=== PATIENT | male | born 1950 | race Caucasian/White ===

== ENCOUNTER 2020-11-07 07:41 | Outpatient (REF) | payer MEDICARE, SELFPAY ==
[2020-11-07 11:50] LABS: Alanine Aminotransferase 53 U/L (0-40); Albumin Level 4.3 g/dL (3.5-5.0); Alkaline Phosphatase 66 U/L (39-117); Anion Gap 16 (12-20); Aspartate Amino Transferase 28 U/L (5-37); Bilirubin Total 0.5 mg/dL (0.0-1.0); Blood Urea Nitrogen 18 mg/dL (9-16); Calcium 8.8 mg/dL (8.4-10.2); Carbon Dioxide 28 mmol/L (22-29); Chloride 98 mmol/L (96-108); Cholesterol 154 mg/dL; Estimated Glomerular Filt Rate 56; Glucose Fasting 178 mg/dL (60-99); HDL Cholesterol 44 mg/dL; LDL Cholesterol Calculated 80 mg/dl; Potassium 4.1 mmol/l (3.3-5.1); Sodium 138 mmol/L (135-145); Total Protein 6.9 g/dL (6.5-8.0); Triglycerides 150 mg/dL
[2020-11-07 11:54] LABS: Creatinine Urine 114.16 mg/dL; Microalbum/Creatinine Ratio Ur 11.3 ug/mg cr
[2020-11-07 12:50] LABS: Estimated Average Glucose 186 mg/dL; Hemoglobin A1c % 8.1 %
== END 2020-11-07 07:42 | disposition home or self-care (01) ==
LOC: HO.HMGCLDS 07:41
PROVIDERS: PCP Internal Medicine; Visit Provider Internal Medicine
DX: I10 Essential (primary) hypertension (principal); E11.9 Type 2 diabetes mellitus without complications; E78.9 Disorder of lipoprotein metabolism, unspecified; R80.9 Proteinuria, unspecified
CPT/HCPCS: 36415; 80053; 80061; 82043; 83036

== ENCOUNTER 2021-07-24 13:52 | Outpatient (REF) | payer MEDICARE, SELFPAY ==
[2021-07-24 17:00] LABS: MANUAL DIFF FLAG NO
[2021-07-24 17:08] LABS: Basophils Percent Auto 0.3 % (0-2); Eosinophils Absolute Auto 0.1 X10*3/uL (0.0-0.4); Eosinophils Percent Auto 0.9 % (0-4); Hematocrit 47.2 % (42-52); Hemoglobin 15.6 g/dl (14.0-18.0); Imm Gran Abs Auto 0.07 X10*3/uL (0.00-0.03); Imm Gran Pct Auto 0.6 % (0.0-0.4); Lymphocytes Absolute Auto 1.6 X10*3/uL (1.2-4.9); Lymphocytes Percent Auto 13.4 % (20-40); Mean Corpuscular HGB Conc 33.1 g/dl (31.0-36.0); Mean Corpuscular Hemoglobin 29.9 pg (27.0-33.0); Mean Corpuscular Volume 90.6 fL (80-98); Mean Platelet Volume 9.7 fL (9.4-12.4); Monocytes Absolute Auto 1.1 X10*3/uL (0.1-1.2); Monocytes Percent Auto 9.1 % (2-11); Neutrophils Absolute Auto 8.8 X10*3/uL (2.0-8.3); Neutrophils Percent Auto 75.7 % (45-73); Platelet Count 256 X10*3/uL (160-400); Red Blood Count 5.21 X10*6/uL (4.60-5.80); Red Cell Distribution Width 13.1 % (11.0-16.0); White Blood Count 11.6 X10*3/uL (4.8-10.8)
[2021-07-24 17:13] LABS: Estimated Average Glucose 174 mg/dL; Hemoglobin A1c % 7.7 %
[2021-07-24 17:31] LABS: Alanine Aminotransferase 52 U/L (0-40); Albumin Level 4.5 g/dL (3.5-5.0); Alkaline Phosphatase 74 U/L (39-117); Anion Gap 16 (12-20); Aspartate Amino Transferase 31 U/L (5-37); Bilirubin Direct 0.2 mg/dL (0.0-0.5); Bilirubin Total 0.3 mg/dL (0.0-1.0); Blood Urea Nitrogen 15 mg/dL (9-16); Calcium 9.9 mg/dL (8.4-10.2); Carbon Dioxide 28 mmol/L (22-29); Chloride 102 mmol/L (96-108); Estimated Glomerular Filt Rate 59; Glucose Random 186 mg/dL (60-115); Potassium 4.5 mmol/L (3.3-5.1); Sodium 141 mmol/L (135-145); Total Protein 7.1 g/dL (6.5-8.0)
[2021-07-24 17:47] LABS: Creatinine Urine 81.07 mg/dL; Microalbum/Creatinine Ratio Ur 43.1 ug/mg cr
[2021-07-26 06:56] LABS: LDL Cholesterol Direct 98 mg/dL (<100)
== END 2021-07-24 13:53 | disposition home or self-care (01) ==
LOC: HO.HMGCLDS 13:52
PROVIDERS: PCP Internal Medicine; Visit Provider Internal Medicine
DX: E13.9 Other specified diabetes mellitus without complications (principal); E78.9 Disorder of lipoprotein metabolism, unspecified; I10 Essential (primary) hypertension; Z91.09 Other allergy status, other than to drugs and biological substances
CPT/HCPCS: 36415; 80053; 82043; 82248; 83036; 83721; 85025

== ENCOUNTER 2021-10-17 07:33 | Outpatient (REF) | payer MEDICARE, SELFPAY ==
[2021-10-17 11:57] LABS: Estimated Average Glucose 177 mg/dL; Hemoglobin A1c % 7.8 %
[2021-10-17 12:01] LABS: Creatinine Urine 139.11 mg/dL; Microalbum/Creatinine Ratio Ur 33.7 ug/mg cr
[2021-10-17 12:19] LABS: Anion Gap 13 (12-20); Blood Urea Nitrogen 17 mg/dL (9-16); Calcium 9.1 mg/dL (8.4-10.2); Carbon Dioxide 28 mmol/L (22-29); Chloride 106 mmol/L (96-108); Estimated Glomerular Filt Rate 60; Glucose Random 189 mg/dL (60-115); Sodium 142 mmol/L (135-145)
== END 2021-10-17 07:34 | disposition home or self-care (01) ==
LOC: HO.HMGCLDS 07:33
PROVIDERS: PCP Internal Medicine; Visit Provider Internal Medicine
DX: E13.9 Other specified diabetes mellitus without complications (principal); E78.9 Disorder of lipoprotein metabolism, unspecified; I10 Essential (primary) hypertension; Z91.09 Other allergy status, other than to drugs and biological substances
CPT/HCPCS: 36415; 80048; 82043; 83036

== ENCOUNTER 2022-02-15 07:54 | Outpatient (REF) | payer MEDICARE, SELFPAY ==
[2022-02-15 11:30] LABS: Estimated Average Glucose 171 mg/dL; Hemoglobin A1c % 7.6 %
[2022-02-15 11:41] LABS: Alanine Aminotransferase 46 U/L (0-40); Albumin Level 4.2 g/dL (3.5-5.0); Alkaline Phosphatase 64 U/L (39-117); Anion Gap 14 (12-20); Aspartate Amino Transferase 27 U/L (5-37); Bilirubin Total 0.7 mg/dL (0.0-1.0); Blood Urea Nitrogen 18 mg/dL (9-16); Calcium 9.2 mg/dL (8.4-10.2); Carbon Dioxide 27 mmol/L (22-29); Chloride 104 mmol/L (96-108); Cholesterol 156 mg/dL; Estimated Glomerular Filt Rate 53; Glucose Fasting 178 mg/dL (60-99); HDL Cholesterol 44 mg/dL; LDL Cholesterol Calculated 89 mg/dl; Potassium 4.9 mmol/L (3.3-5.1); Sodium 140 mmol/L (135-145); Triglycerides 118 mg/dL
[2022-02-15 12:15] LABS: Creatinine Urine 177.77 mg/dL; Microalbum/Creatinine Ratio Ur 5.6 ug/mg cr
== END 2022-02-15 07:55 | disposition home or self-care (01) ==
LOC: HO.HMGCLDS 07:54
PROVIDERS: PCP Internal Medicine; Visit Provider Internal Medicine
DX: E13.9 Other specified diabetes mellitus without complications (principal); E66.09 Other obesity due to excess calories; E78.9 Disorder of lipoprotein metabolism, unspecified; I10 Essential (primary) hypertension
CPT/HCPCS: 36415; 80053; 80061; 82043; 83036

== ENCOUNTER → 2022-06-21 09:49 | Outpatient (BNVA) | payer MEDICARE, SELFPAY | PROVIDERS: PCP Internal Medicine; Visit Provider Nurse Practitioner | DX: Z12.11 Encounter for screening for malignant neoplasm of colon (principal); K64.9 Unspecified hemorrhoids; K59.00 Constipation, unspecified; E11.9 Type 2 diabetes mellitus without complications; I10 Essential (primary) hypertension; E78.00 Pure hypercholesterolemia, unspecified; E66.9 Obesity, unspecified; Z68.32 Body mass index [BMI] 32.0-32.9, adult; Z87.19 Personal history of other diseases of the digestive system | CPT/HCPCS: 99202 ==

== ENCOUNTER 2022-09-12 07:52 | Outpatient (REF) | payer MEDICARE, SELFPAY ==
[2022-09-12 11:32] LABS: Estimated Average Glucose 177 mg/dL; Hemoglobin A1c % 7.8 %
[2022-09-12 11:48] LABS: Alanine Aminotransferase 58 U/L (0-40); Albumin Level 4.4 g/dL (3.5-5.0); Alkaline Phosphatase 62 U/L (39-117); Anion Gap 17 (12-20); Aspartate Amino Transferase 37 U/L (5-37); Bilirubin Total 0.7 mg/dL (0.0-1.0); Blood Urea Nitrogen 18 mg/dL (9-16); Calcium 9.7 mg/dL (8.4-10.2); Carbon Dioxide 28 mmol/L (22-29); Chloride 102 mmol/L (96-108); Estimated Glomerular Filt Rate 54; Glucose Random 192 mg/dL (60-115); Potassium 4.8 mmol/L (3.3-5.1); Sodium 142 mmol/L (135-145); Total Protein 7.1 g/dL (6.5-8.0)
== END 2022-09-12 07:53 | disposition home or self-care (01) ==
LOC: HO.HMGCLDS 07:52
PROVIDERS: PCP Internal Medicine; Visit Provider Internal Medicine
DX: E66.09 Other obesity due to excess calories (principal); E78.9 Disorder of lipoprotein metabolism, unspecified; I10 Essential (primary) hypertension; E13.9 Other specified diabetes mellitus without complications
CPT/HCPCS: 36415; 80053; 83036

== ENCOUNTER 2022-10-29 06:22 | Day surgery (SDC) | payer MEDICARE, SELFPAY ==
[2022-10-22 15:37] VITALS: BMI 32.5
--- NOTE | 2022-10-25 12:28 | HO.ANESPROP2 ---
Documented by User: Afua Read NP 10/25/22 12:29 HPI - Anesthesia Eval Consult details Narrative: 72yo M for Colonoscopy PMFSH Active Problems Active Problems: All Active Problems (Updated 10/22/22 @ 15:37 by Bonnie Cosby RN) Hypertension, essential (Acute) Lipid disorder (Acute) Diabetes 1.5, managed as type 2 (Acute) Environmental allergies (Acute) Obesity due to excess calories (Acute) Vertigo (Acute) Medicare annual wellness visit, subsequent (Acute) Colon cancer screening (Acute) Preop examination (Acute) Past Medical History Medical History Diabetes Elevated cholesterol HTN (hypertension) Nephropathy Family History Family History Father Hyperlipidemia Hx of CABG Mother HTN (hypertension) Hyperlipidemia Sister No problems noted. Son No problems noted. Son No problems noted. Daughter No problems noted. Surgical History Surgical History History of colonoscopy History of umbilical hernia repair Hx of hand surgery Social History Social History Housing: House Are you a primary rehab care assistant to a significant other at home: No Do you presently have visiting nurse or other home services: No Alcohol intake: never Patient Tobacco Use Status: Never used Tobacco e-Cigarette/Vaping Use: Never Used Second Hand Smoke Exposure: Yes Use of substances other than those prescribed or required for medical reasons: No Have you been hit, kicked, punched, or otherwise hurt by someone within the past year? If so, by whom?: No Are you DNR?: No Advance Directives: No Advance Directives Information Provided: Yes (will bring copy of HCP DOS) Advance Directives on File: No Recently lost weight without trying: No Eating poorly because of decreased appetite: No Nutrition Risks: No Nutritional Risk Poor oral hygiene: No Current occupational status: retired Cognitive needs: No Hearing needs: Yes Vision needs: Yes Meds Allergies Allergy/AdvReac Type Severity Reaction Status Date / Time No Known Allergies Allergy Verified 09/24/22 13:55 Home Medications Medication Instructions Recorded Confirmed Last Taken Type cholecalciferol (vitamin D3) 25 25 mcg PO DAILY 11/14/20 10/22/22 Unknown History mcg (1,000 unit) capsule Exam Exam Date and Time: October 25, 2022 1228 Height,Weight and Vital Signs: Height 5 ft 10 in Weight 102.965 kg Pertinent Lab Results Pertinent Lab Results: Laboratory Tests 07/24/21 09/12/22 13:58 08:00 WBC 11.6 H Hgb 15.6 Hct 47.2 Plt Count 256 Sodium 142 Potassium 4.8 Chloride 102 Carbon Dioxide 28 BUN 18 H Creatinine 1.30 Assessment and Plan Assessment Anesthesia Assessment: Chart Reviewed Documented by User: Johnny Sampson MD 10/29/22 07:32 [facility] Past Medical History Medical History Diabetes Elevated cholesterol HTN (hypertension) Nephropathy Family History Family History Father Hyperlipidemia Hx of CABG Mother HTN (hypertension) Hyperlipidemia Sister No problems noted. Son No problems noted. Son No problems noted. Daughter No problems noted. Family history of problems with anesthesia: No Surgical History Surgical History History of colonoscopy History of umbilical hernia repair Hx of hand surgery History of Problems with Anesthesia: No Social History Social History Housing: House Are you a primary rehab care assistant to a significant other at home: No Do you presently have visiting nurse or other home services: No Alcohol intake: never Patient Tobacco Use Status: Never used Tobacco e-Cigarette/Vaping Use: Never Used Second Hand Smoke Exposure: Yes Use of substances other than those prescribed or required for medical reasons: No Have you been hit, kicked, punched, or otherwise hurt by someone within the past year? If so, by whom?: No Are you DNR?: No Advance Directives: No Advance Directives Information Provided: Yes (will bring copy of HCP DOS) Advance Directives on File: No Recently lost weight without trying: No Eating poorly because of decreased appetite: No Nutrition Risks: No Nutritional Risk Poor oral hygiene: No Current occupational status: retired Cognitive needs: No Hearing needs: Yes Vision needs: Yes Meds Allergies Allergy/AdvReac Type Severity Reaction Status Date / Time No Known Allergies Allergy Verified 09/24/22 13:55 Home Medications Medication Instructions Recorded Confirmed Last Taken Type cholecalciferol (vitamin D3) 25 25 mcg PO DAILY 11/14/20 10/22/22 Unknown History mcg (1,000 unit) capsule Exam Airway Mallampati Class: III TM Dist: >3cm Neck ROM: Full Heart: <del>rrr</del> Lungs: clear Assessment and Plan Final Anesthetic Review Family History of Problems with Anesthesia: No History of Problems with Anesthesia: No ASA Class: II Final Preanesthetic Review: No Changes in Pt Med Stat, Meds/Allgs Chart Reviewed, Consent Obtained/Reviewed and Anes Risks/Benef Reviewed Patient Risk: Intermediate Procedure Risk: Low Anesthetic Plan Anesthetic Plan: MAC: Disposition: Standard PACU
[2022-10-29 06:43] VITALS: BP 148/80; PULSE 106; RESP 16; TEMP 35.8; O2SAT 97
[2022-10-29] MEDS: Lactated Ringers 1,000 ML 100 ML IVCONT (06:53)
[2022-10-29 06:57] LABS: Glucose, Whole Blood 134 mg/dL (60-115)
--- NOTE | 2022-10-29 07:30 | MHC.SHP ---
Pre-Procedural Eval Section A Date of Service: 10/29/22 Section B Chief Complaint: screening Details of Present Illness: 71 y.o M here for screening colonoscopy.? Previous colo was in 2008 and reportedly normal. PMHX Diabetes Vertigo Obesity High cholesterol Hypertension Allergic rhinitis * SURGICAL HISTORY Colonoscopy-2008, [place] Umbilical hernia repair-[facility] Present Medications: see Short Stay Collaborative assessment Medical History: Significant History (As above ) History of Previous Operations: Relevant previous surgery/procedure and date(s) (As above ) Allergies: Allergies Allergy/AdvReac Type Severity Reaction Status Date / Time No Known Allergies Allergy Verified 09/24/22 13:55 Review of Systems Review of Systems Comment: 10 point ROS negative except as noted above Exam Exam Comment: Gen appear: No acute distress, well nourished HEENT: no icterus Chest: No overt resp distress Abd: soft, nontender, nondistended Psych: Stable affect, answering questions appropriately Neuro: A/Ox3 noted to move all extremities spontaneously Ext: no peripheral edema Plan Diagnosis/Plan: Unchanged I have reviewed the history and physical and performed a pertinent physical examination on my patient. No changes have occurred unless specified. Time Spent With Patient Time: Total time managing care of this patient today ____ minutes.
--- NOTE | 2022-10-29 07:37 | P.OP_ITS ---
Operative Note Operative Note Date of Service: 10/29/22 Narrative: Procedure: Colonoscopy Indication: Screening Endoscopist: Abbie Trevizo MD Anesthesia Provider: Dr Johnny Sampson Anesthesia type: MAC Instrument: Olympus PCF-H190L and CF-190L Consent: Indication, risks vs benefits, and alternatives were discussed with the patient who gave written informed consent to proceed. EKG, pulse, pulse oximetry and blood pressure were monitored throughout the procedure. Please see anesthesia flowsheet. Procedure: The patient was brought to the procedure room and placed in the left lateral decubitus position. IV medications were administered by the anesthesia provider in attendance. A digital rectal exam was performed which was abnormal due to finding of hemorrhoids. The colonoscope was then inserted through the anus and advanced through the colon to the cecum at 85 cm Ileocecal valve and appendiceal orifice were identified. Mucosa was carefully examined under high definition white light as the instrument was slowly withdrawn in a retrograde panoramic fashion. Retroflexion was performed in rectum. The procedure was somewhat difficult and required change of scope to adult colonoscope to intubate the cecum. There were no immediate obvious complications. The quality of the prep was BBPS: 2+3+2 = adequate Withdrawal time 18 minutes. Limitations: No limitations. Findings: Mucosa: Normal to cecum. Protruding lesions: * 1 sessile polyp of size 2 mm in cecum. Biopsy forceps polypectomy was performed. The polyp was completely removed and retrieved. * 1 sessile polyp of size 4 mm in cecum. Cold snare polypectomy was performed. The polyp was completely removed and retrieved. * 1 sessile polyp of size 6 mm in transverse colon. Cold snare polypectomy was performed. The polyp was completely removed and retrieved. * 1 pedunculated polyp of size 8 mm in transverse colon. Hot snare polypectomy was performed. The polyp was completely removed and retrieved. * 1 sessile polyp of size 7 mm in sigmoid colon. Cold snare polypectomy was performed. The polyp was completely removed and retrieved. * Large internal hemorrhoids with stigmata of recent bleeding. Excavated lesions: * Small and medium mouthed diverticula in whole colon left > right. Impression: 1. Normal colon mucosa 2. Total of 5 polyps removed from cecum, transverse, and sigmoid colon. 3. Diverticulosis 4. Large internal hemorrhoids Recommendations: - Follow path results. - Repeat colonoscopy in 3 years if polyps are adenomas or sessile serrated. - Increase fiber intake, sitz bath
[2022-10-29 08:50] VITALS: BP 90/61; PULSE 86; RESP 18; TEMP 36.9; O2SAT 97
[2022-10-29 09:05] VITALS: BP 110/71; PULSE 81; RESP 18; TEMP 36.9; O2SAT 99
== END 2022-10-29 09:23 ==
LOC: HO.SSS 06:23
PROVIDERS: PCP Internal Medicine; Visit Provider Internal Medicine
PROC: 0DJD8ZZ Inspection of Lower Intestinal Tract, Via Natural or Artificial Opening Endoscopic (ICD-10-PCS; CPT 45378; principal; 2022-10-29 07:30)
DX: Z12.11 Encounter for screening for malignant neoplasm of colon (principal); D12.0 Benign neoplasm of cecum; D12.3 Benign neoplasm of transverse colon; K63.5 Polyp of colon; K57.30 Diverticulosis of large intestine without perforation or abscess without bleeding; K64.8 Other hemorrhoids; I10 Essential (primary) hypertension; E78.00 Pure hypercholesterolemia, unspecified; E11.9 Type 2 diabetes mellitus without complications; R42 Dizziness and giddiness; Z79.84 Long term (current) use of oral hypoglycemic drugs; Z79.899 Other long term (current) drug therapy
CPT/HCPCS: 45385; 45380; 82947; 88305

== ENCOUNTER → 2022-11-11 11:23 | Outpatient (BNVA) | payer MEDICARE, SELFPAY | PROVIDERS: PCP Internal Medicine; Visit Provider Internal Medicine | DX: K57.30 Diverticulosis of large intestine without perforation or abscess without bleeding (principal); D12.0 Benign neoplasm of cecum; D12.3 Benign neoplasm of transverse colon; K63.5 Polyp of colon; Z98.890 Other specified postprocedural states | CPT/HCPCS: 99212 ==

== ENCOUNTER 2023-01-17 07:26 | Outpatient (REF) | payer MEDICARE, SELFPAY ==
[2023-01-17 12:53] LABS: MANUAL DIFF FLAG NO
[2023-01-17 13:00] LABS: Basophils Absolute Auto 0.1 X10*3/uL (0.0-0.2); Basophils Percent Auto 0.5 % (0-2); Eosinophils Absolute Auto 0.3 X10*3/uL (0.0-0.4); Eosinophils Percent Auto 2.7 % (0-4); Hematocrit 49.5 % (42.0-52.0); Hemoglobin 16.3 g/dl (14.0-18.0); Imm Gran Abs Auto 0.07 X10*3/uL (0.00-0.03); Imm Gran Pct Auto 0.7 % (0.0-0.4); Lymphocytes Absolute Auto 2.7 X10*3/uL (1.2-4.9); Lymphocytes Percent Auto 25.8 % (20-40); Mean Corpuscular HGB Conc 32.9 g/dl (31.0-36.0); Mean Corpuscular Hemoglobin 29.6 pg (27.0-33.0); Mean Platelet Volume 9.3 fL (9.4-12.4); Monocytes Absolute Auto 1.1 X10*3/uL (0.1-1.2); Monocytes Percent Auto 10.4 % (2-11); Neutrophils Absolute Auto 6.2 x10*3/uL (2.0-8.3); Neutrophils Percent Auto 59.9 % (45-73); Platelet Count 259 X10*3/uL (160-400); Red Cell Distribution Width 13.2 % (11.0-16.0); White Blood Count 10.3 X10*3/uL (4.8-10.8)
[2023-01-17 13:31] LABS: Alanine Aminotransferase 50 U/L (0-40); Albumin Level 4.2 g/dL (3.5-5.0); Alkaline Phosphatase 65 U/L (39-117); Anion Gap 13 (12-20); Aspartate Amino Transferase 39 U/L (5-37); Bilirubin Total 0.7 mg/dL (0.0-1.0); Blood Urea Nitrogen 15 mg/dL (9-16); Calcium 9.2 mg/dL (8.4-10.2); Carbon Dioxide 30 mmol/L (22-29); Chloride 100 mmol/L (96-108); Cholesterol 169 mg/dL; Estimated Glomerular Filt Rate 52; Glucose Fasting 212 mg/dL (60-99); HDL Cholesterol 43 mg/dL; LDL Cholesterol Calculated 80 mg/dl; Potassium 4.6 mmol/L (3.3-5.1); Sodium 138 mmol/L (135-145); Total Protein 6.9 g/dL (6.5-8.0); Triglycerides 231 mg/dL
[2023-01-17 13:45] LABS: Estimated Average Glucose 200 mg/dL; Hemoglobin A1c % 8.6 %
== END 2023-01-17 07:27 | disposition home or self-care (01) ==
LOC: HO.HMGCLDS 07:26
PROVIDERS: Visit Provider Internal Medicine
DX: E66.09 Other obesity due to excess calories (principal); E78.9 Disorder of lipoprotein metabolism, unspecified; I10 Essential (primary) hypertension; Z91.09 Other allergy status, other than to drugs and biological substances; E13.9 Other specified diabetes mellitus without complications
CPT/HCPCS: 36415; 80053; 80061; 83036; 85025

== ENCOUNTER 2023-06-18 07:42 | Outpatient (REF) | payer MEDICARE, SELFPAY ==
[2023-06-18 11:19] LABS: MANUAL DIFF FLAG NO
[2023-06-18 11:29] LABS: Basophils Absolute Auto 0.1 X10*3/uL (0.0-0.2); Basophils Percent Auto 0.7 % (0-2); Eosinophils Absolute Auto 0.2 X10*3/uL (0.0-0.4); Eosinophils Percent Auto 2.6 % (0-4); Imm Gran Abs Auto 0.07 X10*3/uL (0.00-0.03); Imm Gran Pct Auto 0.8 % (0.0-0.4); Lymphocytes Absolute Auto 2.6 X10*3/uL (1.2-4.9); Lymphocytes Percent Auto 27.8 % (20-40); Mean Corpuscular HGB Conc 33.3 g/dl (31.0-36.0); Mean Corpuscular Hemoglobin 30.2 pg (27.0-33.0); Mean Corpuscular Volume 90.6 fL (80.0-98.0); Mean Platelet Volume 9.4 fL (9.4-12.4); Monocytes Percent Auto 10.5 % (2-11); Neutrophils Absolute Auto 5.3 x10*3/uL (2.0-8.3); Neutrophils Percent Auto 57.6 % (45-73); Platelet Count 251 X10*3/uL (160-400); Red Cell Distribution Width 13.3 % (11.0-16.0); White Blood Count 9.2 X10*3/uL (4.8-10.8)
[2023-06-18 11:37] LABS: Estimated Average Glucose 157 mg/dL; Hemoglobin A1c % 7.1 %
[2023-06-18 12:07] LABS: Alanine Aminotransferase 37 U/L (0-40); Albumin Level 4.2 g/dL (3.5-5.0); Alkaline Phosphatase 63 U/L (39-117); Anion Gap 12 (12-20); Aspartate Amino Transferase 25 U/L (5-37); Bilirubin Total 0.4 mg/dL (0.0-1.0); Blood Urea Nitrogen 16 mg/dL (9-16); Calcium 9.3 mg/dL (8.4-10.2); Carbon Dioxide 28 mmol/L (22-29); Chloride 104 mmol/L (96-108); Cholesterol 165 mg/dL; Estimated Glomerular Filt Rate 55; Glucose Fasting 178 mg/dL (60-99); HDL Cholesterol 50 mg/dL; LDL Cholesterol Calculated 81 mg/dl; Potassium 4.5 mmol/L (3.3-5.1); Sodium 139 mmol/L (135-145); Total Protein 7.3 g/dL (6.5-8.0); Triglycerides 171 mg/dL
== END 2023-06-18 07:43 | disposition home or self-care (01) ==
LOC: HO.HMGCLDS 07:42
PROVIDERS: PCP Internal Medicine; Visit Provider Internal Medicine
DX: E13.9 Other specified diabetes mellitus without complications (principal); E78.9 Disorder of lipoprotein metabolism, unspecified; G25.2 Other specified forms of tremor; I10 Essential (primary) hypertension; G52.2 Disorders of vagus nerve
CPT/HCPCS: 36415; 80053; 80061; 83036; 85025

== ENCOUNTER 2023-06-24 09:52 | Outpatient (AMB) | payer MEDICARE, SELFPAY ==
[2023-06-24 09:54] VITALS: BP 122/64; PULSE 96; O2SAT 99; BMI 32.3
--- NOTE | 2023-06-24 09:54 | A.OFFPC_ITS ---
Vital Signs 06/24/23 09:54 Height 5 ft 10 in Weight 225 lb 6 oz BMI 32.3 BP 122/64 Blood Pressure Location Rt brachial Position Sitting Pulse 96 Pulse Oximetry (%) 99 Oxygen Delivery Method Room Air Intake Visit Reasons: 4m follow up - A1C and Microalbumin needed Allergies No Known Allergies Allergy (Verified 06/24/23 09:54) Medication List - Last Reconciled 06/24/23 by Nazario Augustin MD blood sugar diagnostic (FreeStyle Lite Strips) Test blood sugar once a day blood-glucose meter (FreeStyle Lite Meter kit) Test blood sugar once a day cholecalciferol (vitamin D3) 25 mcg PO DAILY ezetimibe 10 mg PO DAILY glipizide-metformin 5-500 mg orally THREE TIMES A DAY; Take 2 tablets in the morning and 1 at night lancets (FreeStyle Lancets) Test blood sugar once a day lisinopril 5 mg PO DAILY OneTouch Delica Lancets (lancets) Test blood sugar once a day NS OneTouch Ultra Test (blood sugar diagnostic) Test blood sugar once a day NS OneTouch Ultra2 Meter (blood-glucose meter) As directed to test blood sugar NS simvastatin 40 mg PO QPM 90 days Tobacco use date assessed: 06/24/23 Fall risk assessment: No Falls in past year Last assessed Fall Risk: 06/24/23 Dental Screening Dental Screen Date: 06/24/23 Did you have a dental visit in the last 12 months?: Yes Did you have a dental problem in the last 6 months where you did not have access to dental care?: No Was dental information given to patient?: No HPI 4m follow up - A1C and Microalbumin needed HPI Details Patient is a 72-year-old gentleman came in today for his follow-up appointment We increased his glipizide metformin to 2 tablets in the morning and 1 at night, as his hemoglobin A1c has worsened to 8.6 He tells me that he continued to take 1 tablet in the morning and 1 at night he has modified his diet as well his hemoglobin A1c has gone down to 7.1. Blood pressure is stable patient is on lisinopril 5 mg Lipid disorder: Cholesterol is well controlled LDL is well controlled with simvastatin 40 mg patient is tolerating medication I have noticed that his heart rate is in 90s, patient also complained of feeling hot and excessive sweating. I have added thyroid test with his next set of labs. Continued to have coarse tremors he was referred to Neurology for evaluation BMI is elevated at 32.3 patient need to lose weight Chronic nephropathy, GFR is 55, which is stable we are monitoring it. Follow-up 3 months labs to be done before visit [facility] Medical History Diabetes Elevated cholesterol HTN (hypertension) Nephropathy Surgical History History of colonoscopy History of umbilical hernia repair Hx of hand surgery Family History Father Hyperlipidemia Hx of CABG Mother HTN (hypertension) Hyperlipidemia Sister No problems noted. Son No problems noted. Son No problems noted. Daughter No problems noted. Social History Housing: House Are you a primary memory care program director to a significant other at home: No Do you presently have visiting nurse or other home services: No Alcohol intake: never Patient Tobacco Use Status: Never used Tobacco e-Cigarette/Vaping Use: Never Used Second Hand Smoke Exposure: Yes service: Yes Current occupational status: retired Cognitive needs: No Hearing needs: Yes Vision needs: Yes Questionnaire PHQ-9 Over the last 2 weeks, how often have you been bothered by any of the following problems? 1. Little interest or pleasure in doing things: not at all 2. Feeling down, depressed, or hopeless: not at all 3. Trouble falling or staying asleep, or sleeping too much: not at all 4. Feeling tired or having little energy: not at all 5. Poor appetite or overeating: not at all 6. Feeling bad about yourself - or that you are a failure or have let yourself or your family down: not at all 7. Trouble concentrating on things, such as reading the newspaper or watching television: not at all 8. Moving or speaking so slowly that other people could have noticed. Or the opposite - being so fidgety or restless that you have been moving around a lot more than usual: not at all 9. Thoughts that you would be better off or of hurting yourself in some way: not at all Total score: 0 Depression Screening Interpretation: Negative [id number] - PHQ-9 Billing: Yes Source: Developed by Drs. Richard Rome, Brayden Arita and colleagues, with an educational jf from [employer]. Thrive Questionnaire Date Thrive assessed: 06/24/23 I am a: Patient What is your living situation today?: I have a steady place to live Within the past 12 months, did the food you bought not last and you didn't have the money to get more?: Never true Within the past 12 months, did you worry whether your food would run out before you got money to buy more?: Never true Do you have trouble paying for medicines?: No Do you have trouble getting transportation to medical appointments?: No Do you have trouble paying your heating and electricity bill?: No Do you have trouble taking care of your child, family member or friend?: No Do you have trouble with day-to-day activities such as bathing, preparing meals, shopping, managing finances, etc.?: No Are you currently unemployed and looking for a job?: No Are you interested in more education?: No AUDIT C Alcohol Use Questionnaire (AUDIT-C) 1. How often do you have a drink containing alcohol?: Never 3. How often do you have six or more drinks on one occasion?: Never Total Score: 0 Score Reviewed/Action Taken: Yes NGUYỄN-7 AMB Questionnaire NGUYỄN-7 Date NGUYỄN - 7 assessed: 06/24/23 Feeling nervous, anxious, or on edge: 0 = Not at all Not being able to stop or control worryin = Not at all Worrying too much about different things: 0 = Not at all Trouble relaxin = Not at all Being so restless that it is hard to sit still: 0 = Not at all Becoming easily annoyed or irritable: 0 = Not at all Feeling afraid as if something awful might happen: 0 = Not at all Total NGUYỄN-7 score (0-4 normal; 5-9 mild; 10-14 moderate; 15-21 severe): 0 Source: Developed by Drs. Richard Rome, Brayden Arita and colleagues, with an educational jf from [employer]. NGUYỄN-7 Assessment Billing NGUYỄN-7 Assessment Tool: NGUYỄN-7 Assessment 79435 Review of Systems Const Denies chills and Denies fever(s) ENT Denies epistaxis and Denies nasal discharge Card Denies chest pain Resp Denies chest congestion, Denies cough and Denies hemoptysis GI Denies diarrhea and Denies nausea Skin/Breast Denies rash Neuro Reports no additional complaints Psych Reports no additional complaints Endo Reports no additional complaints Physical exam (Primary Care) Vital Signs: Last Vital Signs Pulse 96 06/24/23 09:54 BP 122/64 06/24/23 09:54 Pulse Ox 99 06/24/23 09:54 Oxygen Delivery Method Room Air 06/24/23 09:54 BMI result Body Mass Index 32.3 Tobacco/Smoking Status: Tobacco use Status Tobacco use date assessed 06/24/23 06/24/23 09:56 Patient Tobacco Use Status Never used Tobacco 06/24/23 09:56 e-Cigarette/Vaping Use Never Used 06/24/23 09:56 PHQ-9: PHQ-9 Score PHQ-9: Total score 0 06/24/23 10:27 Depression Screening Interpretation: Negative Thrive Assessment: Date of Thrive Assessment Date Thrive assessed 06/24/23 06/24/23 10:27 Const General: cooperative, comfortable and no acute distress Orientation/consciousness: patient oriented x3 HENMT Head: Yes normocephalic Eyes General: appearance normal, both eyes and all related structures Neck Neck: Yes supple Resp Effort & Inspection: normal respiratory effort, no cough and no stridor Cardio Rhythm: regular rhythm Heart sounds: S1 normal heart sound present and S2 normal heart sound present Skin General skin exam: turgor normal Neuro General: patient oriented x3, tone normal and moves all extremities Extrem Right lower extremity: no edema Left lower extremity: no edema Results AMB Hemoglobin A1c AMB Hemoglobin A1c 7.3 % Last Edit by OLY Park on 06/24/23 10 :14 Results Reviewed Results Reviewed: Laboratory Last Values Hgb A1c (Clinic) 7.3 % (4.0-6.0) H 06/24/23 10:12 Assessment and Plan Assessment & Plan (1) Diabetes 1.5, managed as type 2: Code(s): E13.9 - Other specified diabetes mellitus without complications (2) Environmental allergies: Code(s): Z91.09 - Other allergy status, other than to drugs and biological substances (3) Obesity due to excess calories: Code(s): E66.09 - Other obesity due to excess calories (4) Lipid disorder: Code(s): E78.9 - Disorder of lipoprotein metabolism, unspecified (5) Hypertension, essential: Code(s): I10 - Essential (primary) hypertension (6) Excessive sweating: Code(s): R61 - Generalized hyperhidrosis (7) Coarse tremors: Code(s): G25.2 - Other specified forms of tremor (8) Nephropathy associated with another disease: Code(s): N08 - Glomerular disorders in diseases classified elsewhere Plan Patient is a 72-year-old gentleman came in today for his follow-up appointment We increased his glipizide metformin to 2 tablets in the morning and 1 at night, as his hemoglobin A1c has worsened to 8.6 He tells me that he continued to take 1 tablet in the morning and 1 at night he has modified his diet as well his hemoglobin A1c has gone down to 7.1. Blood pressure is stable patient is on lisinopril 5 mg Lipid disorder: Cholesterol is well controlled LDL is well controlled with simvastatin 40 mg patient is tolerating medication I have noticed that his heart rate is in 90s, patient also complained of feeling hot and excessive sweating. I have added thyroid test with his next set of labs. Continued to have coarse tremors he was referred to Neurology for evaluation BMI is elevated at 32.3 patient need to lose weight Chronic nephropathy, GFR is 55, which is stable we are monitoring it. Allergies are stable Follow-up 3 months labs to be done before visit Orders: Orders Comprehensive Met. Panel Today E13.9 - Other specified diabetes mellitus without complications, E66.09 - Other obesity due to excess calories, E78.9 - Disorder of lipoprotein metabolism, unspecified, G25.2 - Other specified forms of tremor, I10 - Essential (primary) hypertension, R61 - Generalized hyperhidrosis, Z91.09 - Other allergy status, other than to drugs and biological substances Hemoglobin A1c Today E13.9 - Other specified diabetes mellitus without complications, E66.09 - Other obesity due to excess calories, E78.9 - Disorder of lipoprotein metabolism, unspecified, G25.2 - Other specified forms of tremor, I10 - Essential (primary) hypertension, R61 - Generalized hyperhidrosis, Z91.09 - Other allergy status, other than to drugs and biological substances TSH reflex Free T4 Today E13.9 - Other specified diabetes mellitus without complications, E66.09 - Other obesity due to excess calories, E78.9 - Disorder of lipoprotein metabolism, unspecified, G25.2 - Other specified forms of tremor, I10 - Essential (primary) hypertension, R61 - Generalized hyperhidrosis, Z91.09 - Other allergy status, other than to drugs and biological substances Complete Blood Count Auto Diff Today E13.9 - Other specified diabetes mellitus without complications, E66.09 - Other obesity due to excess calories, E78.9 - Disorder of lipoprotein metabolism, unspecified, G25.2 - Other specified forms of tremor, I10 - Essential (primary) hypertension, R61 - Generalized hyperhidrosis, Z91.09 - Other allergy status, other than to drugs and biological substances AMB Hemoglobin A1c Today Z13.9 - Encounter for screening, unspecified Medications: Changed From glipizide-metformin 5-500 mg orally THREE TIMES A DAY; Take 2 tablets in the morning and 1 at night 90 tabs 0RF To glipizide-metformin 5-500 mg 1 tab PO TID 270 tabs 0RF 90 days Coding Level of Care Code Est Pt Level 4 (83016) Diagnoses Diabetes 1.5, managed as type 2 E13.9 Environmental allergies Z91.09 Obesity due to excess calories E66.09 Lipid disorder E78.9 Hypertension, essential I10 Excessive sweating R61 Coarse tremors G25.2 Nephropathy associated with another disease N08 Additional Codes NGUYỄN-7 Assessment Billing - NGUYỄN-7 Assessment Tool: NGUYỄN-7 Assessment [id number] ([id number])
== END 2023-06-24 11:01 | disposition home or self-care (01) ==
PROVIDERS: Visit Provider Internal Medicine
DX: E13.9 Other specified diabetes mellitus without complications (principal); Z91.09 Other allergy status, other than to drugs and biological substances; E66.09 Other obesity due to excess calories; E78.9 Disorder of lipoprotein metabolism, unspecified; I10 Essential (primary) hypertension; R61 Generalized hyperhidrosis; G25.2 Other specified forms of tremor; N08 Glomerular disorders in diseases classified elsewhere
CPT/HCPCS: 83036; 99214

== ENCOUNTER 2023-09-29 07:27 | Outpatient (REF) | payer MEDICARE, SELFPAY ==
[2023-09-29 11:16] LABS: MANUAL DIFF FLAG NO
[2023-09-29 11:37] LABS: Basophils Percent Auto 0.5 % (0-2); Eosinophils Absolute Auto 0.5 X10*3/uL (0.0-0.4); Eosinophils Percent Auto 5.9 % (0-4); Hematocrit 48.2 % (42.0-52.0); Hemoglobin 15.7 g/dl (14.0-18.0); Imm Gran Abs Auto 0.04 X10*3/uL (0.00-0.03); Imm Gran Pct Auto 0.5 % (0.0-0.4); Lymphocytes Absolute Auto 2.3 X10*3/uL (1.2-4.9); Lymphocytes Percent Auto 26.5 % (20-40); Mean Corpuscular HGB Conc 32.6 g/dl (31.0-36.0); Mean Corpuscular Hemoglobin 29.7 pg (27.0-33.0); Mean Corpuscular Volume 91.1 fL (80.0-98.0); Mean Platelet Volume 9.4 fL (9.4-12.4); Monocytes Absolute Auto 1.1 X10*3/uL (0.1-1.2); Monocytes Percent Auto 12.4 % (2-11); Neutrophils Absolute Auto 4.7 x10*3/uL (2.0-8.3); Neutrophils Percent Auto 54.2 % (45-73); Platelet Count 253 X10*3/uL (160-400); Red Blood Count 5.29 X10*6/uL (4.60-5.80); Red Cell Distribution Width 13.2 % (11.0-16.0); White Blood Count 8.6 X10*3/uL (4.8-10.8)
[2023-09-29 11:44] LABS: Estimated Average Glucose 154 mg/dL
[2023-09-29 11:58] LABS: Alanine Aminotransferase 36 U/L (0-40); Albumin Level 4.2 g/dL (3.5-5.0); Alkaline Phosphatase 60 U/L (39-117); Anion Gap 14 (12-20); Aspartate Amino Transferase 25 U/L (5-37); Bilirubin Total 0.5 mg/dL (0.0-1.0); Blood Urea Nitrogen 12 mg/dL (9-16); Calcium 9.3 mg/dL (8.4-10.2); Carbon Dioxide 27 mmol/L (22-29); Chloride 103 mmol/L (96-108); Estimated Glomerular Filt Rate 55; Glucose Random 147 mg/dL (60-115); Potassium 4.2 mmol/L (3.3-5.1); Sodium 140 mmol/L (135-145); Total Protein 7.3 g/dL (6.5-8.0)
[2023-09-29 12:01] LABS: TSH reflex Free T4 3.11 uIU/mL (0.32-4.0)
== END 2023-09-29 07:28 | disposition home or self-care (01) ==
LOC: HO.HMGCLDS 07:27
PROVIDERS: PCP Internal Medicine; Visit Provider Internal Medicine
DX: E13.9 Other specified diabetes mellitus without complications (principal); E66.09 Other obesity due to excess calories; E78.9 Disorder of lipoprotein metabolism, unspecified; R61 Generalized hyperhidrosis; I10 Essential (primary) hypertension; G25.2 Other specified forms of tremor; Z91.09 Other allergy status, other than to drugs and biological substances
CPT/HCPCS: 36415; 80053; 83036; 84443; 85025

== ENCOUNTER 2023-09-30 | Outpatient (REF) | payer MEDICARE, SELFPAY ==
[2023-09-30 14:29] LABS: Creatinine Urine 60.69 mg/dL; Microalbum/Creatinine Ratio Ur 24.7 ug/mg cr (<30)
== END 2023-09-30 00:01 | disposition home or self-care (01) ==
LOC: HO.HMGCLNP
PROVIDERS: Visit Provider Internal Medicine
DX: E11.69 Type 2 diabetes mellitus with other specified complication (principal); E66.9 Obesity, unspecified; I10 Essential (primary) hypertension
CPT/HCPCS: 82043; 82570

== ENCOUNTER 2023-09-30 09:50 | Outpatient (AMB) | payer MEDICARE, SELFPAY ==
[2023-09-30 09:51] VITALS: BP 134/70; BMI 31.9
--- NOTE | 2023-09-30 09:51 | A.OFFPC_ITS ---
Vital Signs 3 09/30/23 09:51 Height 5 ft 10 in Weight 222 lb BMI 31.9 BP 134/70 Blood Pressure Location Rt brachial Position Sitting Intake Visit Reasons: 3 month fu - Microalbumin needed Allergies No Known Allergies Allergy (Verified 09/30/23 09:53) Medication List - Last Reconciled 09/30/23 by Nazario Augustin MD blood sugar diagnostic (FreeStyle Lite Strips) Test blood sugar once a day blood-glucose meter (FreeStyle Lite Meter kit) Test blood sugar once a day cholecalciferol (vitamin D3) 25 mcg PO DAILY ezetimibe 10 mg PO DAILY glipizide-metformin 5-500 mg 1 tab PO TID 90 days lancets (FreeStyle Lancets) Test blood sugar once a day lisinopril 5 mg PO DAILY OneTouch Delica Lancets (lancets) Test blood sugar once a day NS OneTouch Ultra Test (blood sugar diagnostic) Test blood sugar once a day NS OneTouch Ultra2 Meter (blood-glucose meter) As directed to test blood sugar NS simvastatin 40 mg PO QPM 90 days Tobacco use date assessed: 09/30/23 Fall risk assessment: No Falls in past year Last assessed Fall Risk: 09/30/23 Dental Screening Dental Screen Date: 09/30/23 Did you have a dental visit in the last 12 months?: No Did you have a dental problem in the last 6 months where you did not have access to dental care?: No Was dental information given to patient?: No HPI 3 month fu - Microalbumin needed 2 HPI0 Details Patient is a 72-year-old gentleman came in today for his follow-up appointment Patient is suffering from head cold but gradually improving Patient have cauliflour shaped skin lesion left shoulder, I placed a referral for him to be evaluated by Dermatology Diabetes mellitus: Patient is due for microalbumin check, he had labs done recently his hemoglobin A1c 7.0 Patient is tolerating medications no side effects he is on glipizide metformin 5 500 mg t.i.d. due for microalbumin check Blood pressure is stable patient is on lisinopril 5 mg Lipid disorder: Continue simvastatin 40 mg patient is tolerating medication Continued to have coarse tremors he was referred to Neurology for evaluation BMI is elevated , patient is trying to lose weight and had lost some weight since last visit Chronic nephropathy, GFR stable we are monitoring it Allergies are stable Follow-up 3 months labs to be done before visit [facility] Medical History Nephropathy Diabetes Elevated cholesterol HTN (hypertension) Surgical History Hx of hand surgery History of umbilical hernia repair History of colonoscopy Family History Father Hyperlipidemia Hx of CABG Mother HTN (hypertension) Hyperlipidemia Sister No problems noted. Son No problems noted. Son No problems noted. Daughter No problems noted. Social History Housing: House Are you a primary healthcare consultant to a significant other at home: No Do you presently have visiting nurse or other home services: No Alcohol intake: never Patient Tobacco Use Status: Never used Tobacco e-Cigarette/Vaping Use: Never Used Second Hand Smoke Exposure: Yes service: Yes Current occupational status: retired Cognitive needs: No Hearing needs: Yes Vision needs: Yes Questionnaire Thrive Questionnaire Date Thrive assessed: 06/24/23 AUDIT C Alcohol Use Questionnaire (AUDIT-C) 1. How often do you have a drink containing alcohol?: Never 3. How often do you have six or more drinks on one occasion?: Never Total Score: 0 Score Reviewed/Action Taken: Yes NGUYỄN-7 AMB Questionnaire NGUYỄN-7 Date NGUYỄN - 7 assessed: 06/24/23 Source: Developed by Drs. Richard Rome, Lily Sofia, Brayden Mathias and colleagues, with an educational jf from [employer]. Review of Systems Const Denies chills and Denies fever(s) ENT Denies epistaxis and Denies nasal discharge Card Denies chest pain Resp Denies chest congestion, Denies cough and Denies hemoptysis GI Denies diarrhea and Denies nausea Skin/Breast Denies rash Neuro Reports no additional complaints Psych Reports no additional complaints Endo Reports no additional complaints Physical exam (Primary Care) Vital Signs: Last Vital Signs BP 134/70 09/30/23 09:51 BMI result Body Mass Index 31.9 Tobacco/Smoking Status: Tobacco use Status Tobacco use date assessed 09/30/23 09/30/23 09:54 Patient Tobacco Use Status Never used Tobacco 09/30/23 09:53 e-Cigarette/Vaping Use Never Used 09/30/23 09:53 Thrive Assessment: Date of Thrive Assessment Date Thrive assessed 06/24/23 09/30/23 09:53 Const General: cooperative, comfortable and no acute distress Orientation/consciousness: patient oriented x3 HENMT Head: Yes normocephalic Eyes General: appearance normal, both eyes and all related structures Neck Neck: Yes supple Resp Effort & Inspection: normal respiratory effort, no cough and no stridor Cardio Rhythm: regular rhythm Heart sounds: S1 normal heart sound present and S2 normal heart sound present Skin General skin exam: turgor normal Full body images: 2 1. Cauliflower shaped skin growth left shoulder posteriorly 4 mm in diameter raised Neuro General: patient oriented x3, tone normal and moves all extremities Extrem Right lower extremity: no edema Left lower extremity: no edema Assessment and Plan Assessment & Plan (1) Diabetes mellitus type 2 in obese: Code(s): E11.69 - Type 2 diabetes mellitus with other specified complication; E66.9 - Obesity, unspecified (2) Nephropathy associated with another disease: Code(s): N08 - Glomerular disorders in diseases classified elsewhere (3) Coarse tremors: Code(s): G25.2 - Other specified forms of tremor (4) Lipid disorder: Code(s): E78.9 - Disorder of lipoprotein metabolism, unspecified (5) Environmental allergies: Code(s): Z91.09 - Other allergy status, other than to drugs and biological substances (6) Obesity due to excess calories: Code(s): E66.09 - Other obesity due to excess calories Qualifiers: Body mass index: BMI 31.0-31.9 Obesity classification: adult class 1 (BMI 30 - 34.9) Serious obesity comorbidity presence: with serious comorbidity Qualified Code(s): E66.09 - Other obesity due to excess calories; Z68.31 - Body mass index [BMI] 31.0-31.9, adult (7) Hypertension, essential: Code(s): I10 - Essential (primary) hypertension (8) Abnormal skin growth: Code(s): D49.2 - Neoplasm of unspecified behavior of bone, soft tissue, and skin (9) Head cold: Code(s): J00 - Acute nasopharyngitis [common cold] Plan Patient is a 72-year-old gentleman came in today for his follow-up appointment Patient is suffering from head cold but gradually improving Patient have cauliflour shaped skin lesion left shoulder, I placed a referral for him to be evaluated by Dermatology Diabetes mellitus: Patient is due for microalbumin check, he had labs done recently his hemoglobin A1c 7.0 Patient is tolerating medications no side effects he is on glipizide metformin 5 500 mg t.i.d. due for microalbumin check Blood pressure is stable patient is on lisinopril 5 mg Lipid disorder: Continue simvastatin 40 mg patient is tolerating medication Continued to have coarse tremors he was referred to Neurology for evaluation BMI is elevated , patient is trying to lose weight and had lost some weight since last visit Chronic nephropathy, GFR stable we are monitoring it Allergies are stable Follow-up 3 months labs to be done before visit Orders: Orders 2 Complete Blood Count Auto Diff 3 Months E11.69 - Type 2 diabetes mellitus with other specified complication, E66.09 - Other obesity due to excess calories, E66.9 - Obesity, unspecified, E78.9 - Disorder of lipoprotein metabolism, unspecified, G25.2 - Other specified forms of tremor, I10 - Essential (primary) hypertension, N08 - Glomerular disorders in diseases classified elsewhere, Z91.09 - Other allergy status, other than to drugs and biological substances Comprehensive [place]. Panel Fast 3 Months E11. - Type 2 diabetes mellitus with other specified complication, E66.09 - Other obesity due to excess calories, E66.9 - Obesity, unspecified, E78.9 - Disorder of lipoprotein metabolism, unspecified, G25.2 - Other specified forms of tremor, I10 - Essential (primary) hypertension, N08 - Glomerular disorders in diseases classified elsewhere, Z91.09 - Other allergy status, other than to drugs and biological substances Hemoglobin A1c 3 Months E11.69 - Type 2 diabetes mellitus with other specified complication, E66.09 - Other obesity due to excess calories, E66.9 - Obesity, unspecified, E78.9 - Disorder of lipoprotein metabolism, unspecified, G25.2 - Other specified forms of tremor, I10 - Essential (primary) hypertension, N08 - Glomerular disorders in diseases classified elsewhere, Z91.09 - Other allergy status, other than to drugs and biological substances Microalbumin, Random (w Creat) Today E11.69 - Type 2 diabetes mellitus with other specified complication, E66.09 - Other obesity due to excess calories, E66.9 - Obesity, unspecified, E78.9 - Disorder of lipoprotein metabolism, unspecified, G25.2 - Other specified forms of tremor, I10 - Essential (primary) hypertension, N08 - Glomerular disorders in diseases classified elsewhere, Z91.09 - Other allergy status, other than to drugs and biological substances Lipid Panel 3 Months E11.69 - Type 2 diabetes mellitus with other specified complication, E66.09 - Other obesity due to excess calories, E66.9 - Obesity, unspecified, E78.9 - Disorder of lipoprotein metabolism, unspecified, G25.2 - Other specified forms of tremor, I10 - Essential (primary) hypertension, N08 - Glomerular disorders in diseases classified elsewhere, Z91.09 - Other allergy status, other than to drugs and biological substances Referrals 2 Dermatology Referral D49.2 - Neoplasm of unspecified behavior of bone, soft tissue, and skin Coding Level of Care Code Est Pt Level 4 (53421) Diagnoses Diabetes mellitus type 2 in obese E11.69; E66.9 Nephropathy associated with another disease N08 Coarse tremors G25.2 Lipid disorder E78.9 Environmental allergies Z91.09 Class 1 obesity due to excess calories with serious comorbidity and body mass index (BMI) of 31.0 to 31.9 in adult E66.09; Z68.31 Body mass index: BMI 31.0-31.9 Obesity classification: adult class 1 (BMI 30 - 34.9) Serious obesity comorbidity presence: with serious comorbidity Hypertension, essential I10 Abnormal skin growth D49.2 Head cold J00
== END 2023-09-30 12:05 | disposition home or self-care (01) ==
PROVIDERS: PCP Internal Medicine; Visit Provider Internal Medicine
DX: E11.69 Type 2 diabetes mellitus with other specified complication (principal); E66.9 Obesity, unspecified; N08 Glomerular disorders in diseases classified elsewhere; G25.2 Other specified forms of tremor; E78.9 Disorder of lipoprotein metabolism, unspecified; Z91.09 Other allergy status, other than to drugs and biological substances; E66.09 Other obesity due to excess calories; Z68.31 Body mass index [BMI] 31.0-31.9, adult; I10 Essential (primary) hypertension; D49.2 Neoplasm of unspecified behavior of bone, soft tissue, and skin; J00 Acute nasopharyngitis [common cold]
CPT/HCPCS: 99214

== ENCOUNTER 2023-12-30 07:25 | Outpatient (REF) | payer MEDICARE, SELFPAY ==
[2023-12-30 10:23] LABS: MANUAL DIFF FLAG NO
[2023-12-30 10:31] LABS: Basophils Absolute Auto 0.1 X10*3/uL (0.0-0.2); Basophils Percent Auto 0.6 % (0-2); Eosinophils Absolute Auto 0.3 X10*3/uL (0.0-0.4); Eosinophils Percent Auto 2.6 % (0-4); Hematocrit 49.2 % (42.0-52.0); Hemoglobin 16.6 g/dl (14.0-18.0); Imm Gran Abs Auto 0.05 X10*3/uL (0.00-0.03); Imm Gran Pct Auto 0.5 % (0.0-0.4); Lymphocytes Absolute Auto 2.4 X10*3/uL (1.2-4.9); Lymphocytes Percent Auto 25.7 % (20-40); Mean Corpuscular HGB Conc 33.7 g/dl (31.0-36.0); Mean Corpuscular Hemoglobin 30.5 pg (27.0-33.0); Mean Corpuscular Volume 90.3 fL (80.0-98.0); Mean Platelet Volume 9.4 fL (9.4-12.4); Monocytes Percent Auto 10.5 % (2-11); Neutrophils Absolute Auto 5.7 x10*3/uL (2.0-8.3); Neutrophils Percent Auto 60.1 % (45-73); Platelet Count 272 X10*3/uL (160-400); Red Blood Count 5.45 X10*6/uL (4.60-5.80); Red Cell Distribution Width 13.4 % (11.0-16.0); White Blood Count 9.5 X10*3/uL (4.8-10.8)
[2023-12-30 11:01] LABS: Alanine Aminotransferase 35 U/L (0-40); Albumin Level 4.1 g/dL (3.5-5.0); Alkaline Phosphatase 59 U/L (39-117); Anion Gap 13 (12-20); Aspartate Amino Transferase 24 U/L (5-37); Bilirubin Total 0.5 mg/dL (0.0-1.0); Blood Urea Nitrogen 16 mg/dL (9-16); Calcium 9.6 mg/dL (8.4-10.2); Carbon Dioxide 29 mmol/L (22-29); Chloride 101 mmol/L (96-108); Cholesterol 169 mg/dL (<200); Estimated Glomerular Filt Rate 60; Glucose Fasting 186 mg/dL (60-99); HDL Cholesterol 46 mg/dL (>40); LDL Cholesterol Calculated 84 mg/dL (<100); Potassium 4.3 mmol/L (3.3-5.1); Sodium 139 mmol/L (135-145); Total Protein 7.2 g/dL (6.5-8.0); Triglycerides 198 mg/dL (<150)
[2023-12-30 16:15] LABS: Estimated Average Glucose 160 mg/dL; Hemoglobin A1c % 7.2 % (<6.0)
== END 2023-12-30 07:26 | disposition home or self-care (01) ==
LOC: HO.HMGCLDS 07:25
PROVIDERS: PCP Internal Medicine; Visit Provider Internal Medicine
DX: E11.69 Type 2 diabetes mellitus with other specified complication (principal); E66.9 Obesity, unspecified; N08 Glomerular disorders in diseases classified elsewhere; G25.2 Other specified forms of tremor; E78.9 Disorder of lipoprotein metabolism, unspecified; E66.09 Other obesity due to excess calories; I10 Essential (primary) hypertension; Z91.09 Other allergy status, other than to drugs and biological substances
CPT/HCPCS: 36415; 80053; 80061; 83036; 85025

== ENCOUNTER 2023-12-31 09:42 | Outpatient (AMB) | payer MEDICARE, SELFPAY ==
--- NOTE | 2023-12-31 09:42 | MHC.PC.OV ---
Vital Signs 12/31/23 09:43 Height 5 ft 10 in Weight 221 lb 2 oz BMI 31.7 BP 126/74 Blood Pressure Location Lt brachial Position Sitting Pulse 114 H Pulse Source Pulse Oximeter Pulse Oximetry (%) 94 Oxygen Delivery Method Room Air Intake Visit Reasons: 6 month fu Allergies No Known Allergies Allergy (Verified 12/31/23 09:43) Medication List - Last Reconciled 12/31/23 by Nazario Augustin MD blood sugar diagnostic (FreeStyle Lite Strips) Test blood sugar once a day blood-glucose meter (FreeStyle Lite Meter kit) Test blood sugar once a day cholecalciferol (vitamin D3) 25 mcg PO DAILY ezetimibe 10 mg PO DAILY glipizide-metformin 5-500 mg 1 tab PO TID 90 days lancets (FreeStyle Lancets) Test blood sugar once a day lisinopril 5 mg PO DAILY OneTouch Delica Lancets (lancets) Test blood sugar once a day NS OneTouch Ultra Test (blood sugar diagnostic) Test blood sugar once a day NS OneTouch Ultra2 Meter (blood-glucose meter) As directed to test blood sugar NS simvastatin 40 mg PO QPM 90 days Tobacco use date assessed: 12/31/23 Fall risk assessment: No Falls in past year Last assessed Fall Risk: 12/31/23 Dental Screening Dental Screen Date: 12/31/23 Did you have a dental visit in the last 12 months?: No Did you have a dental problem in the last 6 months where you did not have access to dental care?: No Was dental information given to patient?: Patient has dentist HPI 6 month fu HPI Details Patient is a 73-year-old gentleman came in today for his follow-up appointment Patient continued to be tachycardic his heart rate is 114 today We did the EKG which shows no acute findings but there are some chronic abnormality is That need further evaluation by Cardiology I have ordered Holter monitor and echocardiogram for the patient Diabetes mellitus: Labs done recently reviewed with the patient hemoglobin A1c 7.2 Patient is tolerating medications no side effects he is on glipizide metformin 5 500 mg t.i.d. due for microalbumin check Blood pressure is stable patient is on lisinopril 5 mg Lipid disorder: Continue simvastatin 40 mg patient is tolerating medication Continued to have coarse tremors he was referred to Neurology for evaluation BMI is elevated , patient is trying to lose weight and had lost some weight since last visit Chronic nephropathy, GFR stable we are monitoring it Allergies are stable Follow-up 3 months [facility] Medical History Nephropathy Diabetes Elevated cholesterol HTN (hypertension) Surgical History Hx of hand surgery History of umbilical hernia repair History of colonoscopy Family History Father Hyperlipidemia Hx of CABG Mother HTN (hypertension) Hyperlipidemia Sister No problems noted. Son No problems noted. Son No problems noted. Daughter No problems noted. Social History Housing: House Are you a primary health care legal assistant to a significant other at home: No Do you presently have visiting nurse or other home services: No Alcohol intake: never Patient Tobacco Use Status: Never used Tobacco e-Cigarette/Vaping Use: Never Used Second Hand Smoke Exposure: Yes service: Yes Current occupational status: retired Cognitive needs: No Hearing needs: Yes Vision needs: Yes Questionnaire PHQ-9 Over the last 2 weeks, how often have you been bothered by any of the following problems? 1. Little interest or pleasure in doing things: not at all 2. Feeling down, depressed, or hopeless: not at all 3. Trouble falling or staying asleep, or sleeping too much: not at all 4. Feeling tired or having little energy: not at all 5. Poor appetite or overeating: not at all 6. Feeling bad about yourself - or that you are a failure or have let yourself or your family down: not at all 7. Trouble concentrating on things, such as reading the newspaper or watching television: not at all 8. Moving or speaking so slowly that other people could have noticed. Or the opposite - being so fidgety or restless that you have been moving around a lot more than usual: not at all 9. Thoughts that you would be better off or of hurting yourself in some way: not at all Total score: 0 Depression Screening Interpretation: Negative Depression Screening Done: Yes 34503 - PHQ-9 Billing: Yes Source: Developed by Drs. Lily Bynum Kurt Kroenke and colleagues, with an educational jf from [employer]. Thrive Questionnaire Date Thrive assessed: 12/31/23 I am a: Patient What is your living situation today?: I have a steady place to live Within the past 12 months, did the food you bought not last and you didn't have the money to get more?: Never true Within the past 12 months, did you worry whether your food would run out before you got money to buy more?: Never true Do you have trouble paying for medicines?: No Do you have trouble getting transportation to medical appointments?: No Do you have trouble paying your heating and electricity bill?: No Do you have trouble taking care of your child, family member or friend?: No Do you have trouble with day-to-day activities such as bathing, preparing meals, shopping, managing finances, etc.?: No Are you currently unemployed and looking for a job?: No Are you interested in more education?: No Please select the resources that you would like help with: None Currently or been in a relationship where the following occur: no concerns reported THRIVE Score: 0 AUDIT C Alcohol Use Questionnaire (AUDIT-C) 1. How often do you have a drink containing alcohol?: Never 3. How often do you have six or more drinks on one occasion?: Never Total Score: 0 Score Reviewed/Action Taken: Yes NGUYỄN-7 AMB Questionnaire NGUYỄN-7 Date NGUYỄN - 7 assessed: 12/31/23 Feeling nervous, anxious, or on edge: 0 = Not at all Not being able to stop or control worryin = Not at all Worrying too much about different things: 0 = Not at all Trouble relaxin = Not at all Being so restless that it is hard to sit still: 0 = Not at all Becoming easily annoyed or irritable: 0 = Not at all Feeling afraid as if something awful might happen: 0 = Not at all Total NGUYỄN-7 score (0-4 normal; 5-9 mild; 10-14 moderate; 15-21 severe): 0 Source: Developed by Lily Carpenter Kurt Kroenke and colleagues, with an educational jf from [employer]. NGUYỄN-7 Assessment Billing NGUYỄN-7 Assessment Tool: NGUYỄN-7 Assessment 34646 Review of Systems Const Denies chills and Denies fever(s) ENT Denies epistaxis and Denies nasal discharge Card Denies chest pain Resp Denies chest congestion, Denies cough and Denies hemoptysis GI Denies diarrhea and Denies nausea Skin/Breast Denies rash Neuro Reports no additional complaints Psych Reports no additional complaints Endo Reports no additional complaints Physical exam (Primary Care) Vital Signs: Last Vital Signs Pulse 114 H 12/31/23 09:43 BP 126/74 12/31/23 09:43 Pulse Ox 94 12/31/23 09:43 Oxygen Delivery Method Room Air 12/31/23 09:43 BMI result Body Mass Index 31.7 Tobacco/Smoking Status: Tobacco use Status Tobacco use date assessed 12/31/23 12/31/23 09:44 Patient Tobacco Use Status Never used Tobacco 12/31/23 09:44 e-Cigarette/Vaping Use Never Used 12/31/23 09:44 PHQ-9: PHQ-9 Score PHQ-9: Total score 0 12/31/23 10:15 Depression Screening Interpretation: Negative Thrive Assessment: Date of Thrive Assessment Date Thrive assessed 12/31/23 12/31/23 10:12 Currently or been in a relationship where the following occur: no concerns reported Const General: cooperative, comfortable and no acute distress Orientation/consciousness: patient oriented x3 HENMT Head: Yes normocephalic Eyes General: appearance normal, both eyes and all related structures Neck Neck: Yes supple Resp Effort & Inspection: normal respiratory effort, no cough and no stridor Cardio Rhythm: regular rhythm Heart sounds: S1 normal heart sound present and S2 normal heart sound present Skin General skin exam: turgor normal Neuro General: patient oriented x3, tone normal and moves all extremities Extrem Right lower extremity: no edema Left lower extremity: no edema Office Procedures EKG [id number], Complete Assessment and Plan Assessment & Plan (1) Abnormal EKG: Code(s): R94.31 - Abnormal electrocardiogram [ECG] [EKG] (2) Tachycardia: Code(s): R00.0 - Tachycardia, unspecified (3) Hypertension, essential: Code(s): I10 - Essential (primary) hypertension (4) Diabetes mellitus type 2 in obese: Code(s): E11.69 - Type 2 diabetes mellitus with other specified complication; E66.9 - Obesity, unspecified (5) Nephropathy associated with another disease: Code(s): N08 - Glomerular disorders in diseases classified elsewhere (6) Coarse tremors: Code(s): G25.2 - Other specified forms of tremor (7) Lipid disorder: Code(s): E78.9 - Disorder of lipoprotein metabolism, unspecified (8) Environmental allergies: Code(s): Z91.09 - Other allergy status, other than to drugs and biological substances (9) Obesity due to excess calories: Code(s): E66.09 - Other obesity due to excess calories Qualifiers: Body mass index: BMI 31.0-31.9 Obesity classification: adult class 1 (BMI 30 - 34.9) Serious obesity comorbidity presence: with serious comorbidity Qualified Code(s): E66.09 - Other obesity due to excess calories; Z68.31 - Body mass index [BMI] 31.0-31.9, adult Plan Patient is a 73-year-old gentleman came in today for his follow-up appointment Patient continued to be tachycardic his heart rate is 114 today We did the EKG which shows no acute findings but there are some chronic abnormality is That need further evaluation by Cardiology I have ordered Holter monitor and echocardiogram for the patient Diabetes mellitus: Labs done recently reviewed with the patient hemoglobin A1c 7.2 Patient is tolerating medications no side effects he is on glipizide metformin 5 500 mg t.i.d. due for microalbumin check Blood pressure is stable patient is on lisinopril 5 mg Lipid disorder: Continue simvastatin 40 mg patient is tolerating medication Continued to have coarse tremors he was referred to Neurology for evaluation BMI is elevated , patient is trying to lose weight and had lost some weight since last visit Chronic nephropathy, GFR stable we are monitoring it Allergies are stable Follow-up 3 months Orders: Orders ECG holter monitor 24 hour Today R00.0 - Tachycardia, unspecified, R94.31 - Abnormal electrocardiogram [ECG] [EKG] CA echo transthoracic complete Today I10 - Essential (primary) hypertension, R00.0 - Tachycardia, unspecified, R94.31 - Abnormal electrocardiogram [ECG] [EKG] AMB EKG-In Office Today R00.0 - Tachycardia, unspecified Referrals Cardiology Referral I10 - Essential (primary) hypertension, R00.0 - Tachycardia, unspecified, R94.31 - Abnormal electrocardiogram [ECG] [EKG] Coding Level of Care Code Est Pt Level 4 (46656) Diagnoses Abnormal EKG R94.31 Tachycardia R00.0 Hypertension, essential I10 Diabetes mellitus type 2 in obese E11.69; E66.9 Nephropathy associated with another disease N08 Coarse tremors G25.2 Lipid disorder E78.9 Environmental allergies Z91.09 Class 1 obesity due to excess calories with serious comorbidity and body mass index (BMI) of 31.0 to 31.9 in adult E66.09; Z68.31 Body mass index: BMI 31.0-31.9 Obesity classification: adult class 1 (BMI 30 - 34.9) Serious obesity comorbidity presence: with serious comorbidity CPT Codes EKG - CPT: 38530-[id number], Complete ([id number]) Additional Codes NGUYỄN-7 Assessment Billing - NGUYỄN-7 Assessment Tool: NGUYỄN-7 Assessment 94381 ([id number]) Comment 5 minute pre visit, 15 the patient, 7 EKG, 5 charting, 5 coordination of care
[2023-12-31 09:43] VITALS: BP 126/74; PULSE 114; O2SAT 94; BMI 31.7
== END 2023-12-31 10:33 | disposition home or self-care (01) ==
PROVIDERS: PCP Internal Medicine; Visit Provider Internal Medicine
DX: R94.31 Abnormal electrocardiogram [ECG] [EKG] (principal); R00.0 Tachycardia, unspecified; I10 Essential (primary) hypertension; E11.69 Type 2 diabetes mellitus with other specified complication; E66.9 Obesity, unspecified; N08 Glomerular disorders in diseases classified elsewhere; G25.2 Other specified forms of tremor; E78.9 Disorder of lipoprotein metabolism, unspecified; Z91.09 Other allergy status, other than to drugs and biological substances; E66.09 Other obesity due to excess calories; Z68.31 Body mass index [BMI] 31.0-31.9, adult
CPT/HCPCS: 93000; 99214

== ENCOUNTER → 2024-01-07 08:49 | Outpatient (REF) | payer MEDICARE, SELFPAY ==
--- NOTE | 2024-01-07 08:53 | CA_ITS ---
Transthoracic Echocardiogram Patient (Last, First, Middle): Moy Thomas A Gender: Male Date of : 1950 Age: 73 Procedure Date: 01/07/2024 Procedure Type: Transthoracic Echocardiogram Location: OP Height: 180.34 cm Weight: 97.52 kg BSA: 2.17 m2 Heart Rate: bpm BP: 118 / 60 mmHg Animal Attendants And Trainers: Referring MD: Nazario Augustin MD Shipfitter Helper: Mariano Correa MD Symptoms: R94.31 - Abnormal electrocardiogram [ECG] [EKG] Study Quality: Adequate ECG Rhythm: Sinus Conclusions: - 1. Normal LV ejection fraction of 55-60% with mild LVH with grade 1 diastolic dysfunction 2. Mild aortic regurgitation 3. Mildly dilated ascending aorta 4. Normal RV systolic pressure 5. No pericardial effusion Findings Left Ventricle Normal left ventricular size and systolic function. There is mildly increased left ventricular wall thickness. The visually estimated ejection fraction is between 55-60%. Spectral Doppler is indicative of an impaired relaxation filling pattern. E/E prime ratio is <8, consistent with normal filling pressures. Evidence suggests grade I (mild) diastolic dysfunction. Right Ventricle Normal right ventricular cavity size and systolic function. Atria The left atrium is likely dilated. There is lipomatous hypertrophy of the interatrial septum. There is no evidence of interatrial shunt. The right atrium is normal in size. Aortic Valve The aortic valve was not well visualized. There is mild calcification of the aortic valve. There is no aortic valve stenosis. There is mild aortic valve regurgitation. Mitral Valve There is mild anterior and posterior mitral leaflet thickening. There is trace mitral valve regurgitation. There is no mitral valve stenosis. Pulmonic Valve The pulmonic valve was not well visualized. Tricuspid Valve Likely normal tricuspid valve structure and function. There is trace tricuspid valve regurgitation. The right ventricular systolic pressure is normal. The right ventricular systolic pressure is 17 mmHg. Normal right atrial pressure. There is no evidence of pulmonary hypertension. Great Vessels The pulmonary artery was not well visualized. There is mild dilatation of the ascending aorta measuring 4.20 cm. Venous The inferior vena cava is normal in size and collapses greater than 50% with inspiration. Pericardium/Pleural There is no evidence of pericardial effusion. Prior Study Comparison No prior study available for comparison. Measurements 2D Linear Measurements IVSd: 1.38 0.6-0.9/0.6-1.0 cm LVIDd: 4.52 3.9-5.3/4.2-5.9 cm LVIDd Index: 2.08 2.4-3.2/2.2-3.1 cm/m2 LVIDs: 3.07 2.0-3.6 cm LVPWd: 1.41 0.7-1.1 cm Ao Root: 3.50 2.1-3.5 cm LA Diam: 4.20 2.7-3.8/3.0-4.0 cm LAIDs Index: 1.94 1.5-2.3 cm/m2 LV Mass: 310.20 67-162/88-224 g LV Mass Index: 142.95 43-95/49-115 g/m2 LVOT Diam: 2.30 3.0+(-)1.3 cm 2D Systolic Function EF 4C: 61.10 >55% EF 2C: 56.80 >55% EF BiP: 59.50 >55% Mitral Valve MV Pk E: 0.44 MV PK A: 0.84 MV Decel Time: 152.00 E/A: 0.50 E'Lateral: 5.44 E'Medial: 5.44 E/E' Med: 8.10 E/E' Lat: 8.10 PHT: 45.00 MVA PHT: 4.89 Decel [place]: 2.90 Aortic Valve AoV Pk Romero: 2.02 AoV Mn Romero: 1.23 AoV VTI: 0.32 AoV Pk Grad: 16.00 Aov Mn Grad: 7.00 COMFORT Cont.VTI: 2.40 LVOT LVOT Pk Romero: 1.02 LVOT Mn Romero: 0.65 LVOT VTI: 0.18 LVOT Pk Grad: 4.00 LVOT Mn Grad: 2.00 LVOT Diam: 2.30 LVOT Area: 4.15 Diastolic Function MV Pk E: 0.44 MV Pk A: 0.84 E/A: 0.50 E'Medial: 5.44 E/E' Med: 8.10 E' Laterial: 5.44 E/E' Lat: 8.10 Right Ventricle TAPSE (mm): 18.00 TVS' Romero: 12.00 Tricuspid Valve TR Pk Romero: 1.87 TR Pk Grad: 14.00 RA Press: 3.00 RVSP: 17.00 Great Vessels Aorta Ao Root-2D: 3.50 2.0-3.7 cm Ao Asc: 4.20 2.1-3.4 cm Pulmonary Valve PV Pk Romero: 1.21 Peak PV Grad: 6.00 Updated in Other Vendor System with Status of Final Mariano Correa MD electronically signed on 01/07/2024 3:37:57 PM with status of Final
--- NOTE | 2024-01-07 08:53 | HM_ITS ---
Conclusion: 1. Patient was monitored for total period of 1 day 2. Baseline was normal sinus rhythm with average heart of 54 beats per minute 3. No significant pauses or arrhythmias noted 4. No patient reported events MTDD
== END ==
LOC: HO.CARD 08:49
PROVIDERS: PCP Internal Medicine; Visit Provider Internal Medicine
DX: R00.0 Tachycardia, unspecified (principal); I10 Essential (primary) hypertension; R94.31 Abnormal electrocardiogram [ECG] [EKG]; I49.3 Ventricular premature depolarization
CPT/HCPCS: 93225; 93306

== ENCOUNTER → 2024-01-07 08:53 | Outpatient (BNV) | payer MEDICARE, SELFPAY | PROVIDERS: PCP Internal Medicine; Visit Provider Internal Medicine Cardiovascular Disease | DX: R00.0 Tachycardia, unspecified (principal); R94.31 Abnormal electrocardiogram [ECG] [EKG] | CPT/HCPCS: 93227; 93306 ==

== ENCOUNTER 2024-03-15 14:57 | Outpatient (AMB) | payer MEDICARE, SELFPAY ==
[2024-03-15 14:59] VITALS: BP 124/78; PULSE 108; BMI 31.9
--- NOTE | 2024-03-15 14:59 | A.OFFVIS_ITS ---
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 Hypertension Intake Note: New patient with ekg dx tachycardiac feeling good had echo and holter done Audience Coordinator Required: No Pneumatic Jack Operator: Pneumatic Jack Operator Present Accompanied by: Spouse Allergies No Known Allergies Allergy (Verified 12/31/23 09:43) Medication List - Last Reconciled 03/15/24 by Mariano Correa MD blood sugar diagnostic (FreeStyle Lite Strips) Test blood sugar once a day blood-glucose meter (FreeStyle Lite Meter kit) Test blood sugar once a day cholecalciferol (vitamin D3) 25 mcg PO DAILY ezetimibe 10 mg PO DAILY glipizide-metformin 5-500 mg 1 tab PO BID lancets (FreeStyle Lancets) Test blood sugar once a day lisinopril 5 mg PO DAILY OneTouch Delica Lancets (lancets) Test blood sugar once a day NS OneTouch Ultra Test (blood sugar diagnostic) Test blood sugar once a day NS OneTouch Ultra2 Meter (blood-glucose meter) As directed to test blood sugar NS simvastatin 40 mg PO QPM 90 days HPI Comments Details: Thank you for referring Winter in cardiology consultation today. Recently had EKG in your office which shows sinus tachycardia. Subsequently underwent echocardiogram which showed normal LV ejection fraction with mildly dilated ascending aorta as well as mild aortic regurgitation. Holter monitor was also done because of tachycardia and is average heart rate was actually 84 beats per minute with no pauses. No significant arrhythmias were detected. He is longstanding history of hypertension diabetes which are both well controlled as per him. He maintains activity without any limitations. As per the he continues to work in the [employer]. He denies any lightheadedness, syncope. Drinks adequate amount of fluids every day. Denies any heart failure symptoms of orthopnea, PND, leg edema. Denies any exertional chest pain. His TSH was within normal limits. [facility] Medical History Nephropathy Diabetes Elevated cholesterol HTN (hypertension) Surgical History Hx of hand surgery History of umbilical hernia repair History of colonoscopy Family History Father Hyperlipidemia Hx of CABG Mother HTN (hypertension) Hyperlipidemia Sister No problems noted. Son No problems noted. Son No problems noted. Daughter No problems noted. Social History Housing: House Are you a primary ambulatory care to a significant other at home: No Do you presently have visiting nurse or other home services: No Alcohol intake: never Patient Tobacco Use Status: Never used Tobacco e-Cigarette/Vaping Use: Never Used Second Hand Smoke Exposure: Yes service: Yes Current occupational status: retired Cognitive needs: No Hearing needs: Yes Vision needs: Yes Review of Systems Const Denies chills, Denies daytime sleepiness, Denies fatigue, Denies fever(s), Denies frequent falls, Denies poor appetite, Denies snoring, Denies stops breathing during sleep, Denies weakness, Denies weight gain and Denies weight loss Eyes Denies loss of vision ENT Denies dizziness and Denies hearing loss Card Denies chest pain, Denies claudication, Denies leg edema, Denies lightheadedness, Denies palpitations, Denies dyspnea, Denies dyspnea on exertion and Denies orthopnea Resp Denies cough, Denies excessive phlegm production, Denies dyspnea, Denies dyspnea on exertion, Denies snoring and Denies wheezing GI Denies abdominal pain, Denies hematochezia, Denies change in bowel habits, Denies nausea and Denies vomiting Denies dysuria and Denies urinary frequency Musc Denies arthralgias, Denies muscle weakness, Denies numbness and Denies other (frequent falls) Skin/Breast Denies nail changes and Denies rash Neuro Denies Abnormal speech present, Denies dizziness, Denies frequent falls, Denies loss of vision, Denies memory loss, Denies numbness and Denies weakness Psych Denies depression and Denies memory loss Endo Denies fatigue and Denies palpitations Kirby/Lymph Reports easy bruising and Reports other (anemia) Aller/Immun Denies wheezing Physical Exam Vital Signs: Last Vital Signs Pulse 108 H 03/15/24 14:59 BP 124/78 03/15/24 14:59 BMI result Body Mass Index 31.9 Const General: cooperative, comfortable, no acute distress, alert, awake, anxious and well groomed Nutritional Appearance: obese Orientation/consciousness: patient oriented x3 Limitations: no limitations HEENT Head: Yes normocephalic and Yes atraumatic Neck Neck: Yes trachea midline, Yes supple and Yes no JVD Resp Effort & Inspection: normal respiratory effort Auscultation: clear to auscultation bilaterally Cardio Jugular venous distension: no JVD Palpation: normal PMI Rate: tachycardic Rhythm: regular rhythm Heart sounds: S1 normal heart sound present, S2 normal heart sound present, no click, no gallops, no murmurs and no rubs GI Auscultation: normal bowel sounds Skin General skin exam: no rashes or lesions noted Neuro General: patient oriented x3 and no focal motor deficits Speech: No Abnormal speech present Extrem General: Yes no clubbing, cyanosis or edema Office Procedures EKG Details: EKG shows sinus tachycardia with left axis deviation with nonspecific ST changes 27411-[id number], Complete Assessment & Plan Assessment & Plan (1) Sinus tachycardia: Code(s): R00.0 - Tachycardia, unspecified Category: Medical Plan: Sinus tachycardia which is inappropriate and/or stress related. Holter monitor while in his usual setting showed average heart of 84 beats per minute with no significant frequent sinus tachycardia noted. I do not think this requires further therapy or treatment. There is no evidence of hyperthyroidism by testing within the last 6 months. He has no other systemic symptoms. No fever or chills. Advised to maintain adequate hydration. Mild degree of dysautonomia as possible although no further treatment is necessary unless he gets any symptoms related to it. (2) Enlarged thoracic aorta: Code(s): I77.89 - Other specified disorders of arteries and arterioles Category: Medical Plan: Mildly enlarged thoracic aorta most likely atherosclerotic given his multiple risk factors including age, hypertension, diabetes. No symptoms related to it and no treatment from surgical perspective as required. Management of this was discussed. Follow-up echocardiogram in 1 year's time. Continue aggressive blood pressure control which seems to be well optimized at this point time. Diabetes management at your office. Goal LDL less than 70 mg/dL. Will follow up in the clinic in 1 year's time, sooner p.r.n.. Thank you for allowing me to partake in his care Medications: Changed From glipizide-metformin 5-500 mg 1 tab PO TID 90 days 270 tabs 0RF To glipizide-metformin 5-500 mg 1 tab PO BID Coding Level of Care Code New Pt Level 4 (33589) Diagnoses Sinus tachycardia R00.0 Enlarged thoracic aorta I77.89 CPT Codes EKG - CPT: 33734-[id number], Complete ([id number])
== END 2024-03-15 15:50 | disposition home or self-care (01) ==
PROVIDERS: PCP Internal Medicine; Visit Provider Internal Medicine Cardiovascular Disease
DX: R00.0 Tachycardia, unspecified (principal); I77.810 Thoracic aortic ectasia
CPT/HCPCS: 93010; 99214

== ENCOUNTER → 2024-03-15 14:57 | Outpatient (BNVA) | payer MEDICARE, SELFPAY | PROVIDERS: PCP Internal Medicine; Visit Provider Internal Medicine Cardiovascular Disease | DX: I77.89 Other specified disorders of arteries and arterioles (principal); R00.0 Tachycardia, unspecified; R94.31 Abnormal electrocardiogram [ECG] [EKG] | CPT/HCPCS: 93005; 99212 ==

== ENCOUNTER 2024-04-01 07:38 | Outpatient (AMB) | payer MEDICARE, SELFPAY ==
--- NOTE | 2024-04-01 08:35 | MHC.PC.OV ---
Intake Visit Reasons: folow up- see comment Allergies No Known Allergies Allergy (Verified 04/01/24 08:36) Medication List - Last Reconciled 04/01/24 by Nazario Augustin MD blood sugar diagnostic (FreeStyle Lite Strips) Test blood sugar once a day blood-glucose meter (FreeStyle Lite Meter kit) Test blood sugar once a day cholecalciferol (vitamin D3) 25 mcg PO DAILY ezetimibe 10 mg PO DAILY glipizide-metformin 5-500 mg 1 tab PO BID lancets (FreeStyle Lancets) Test blood sugar once a day lisinopril 5 mg PO DAILY OneTouch Delica Lancets (lancets) Test blood sugar once a day NS OneTouch Ultra Test (blood sugar diagnostic) Test blood sugar once a day NS OneTouch Ultra2 Meter (blood-glucose meter) As directed to test blood sugar NS simvastatin 40 mg PO QPM 90 days Tobacco use date assessed: 04/01/24 Fall risk assessment: No Falls in past year Last assessed Fall Risk: 04/01/24 Dental Screening Dental Screen Date: 04/01/24 Did you have a dental visit in the last 12 months?: No Did you have a dental problem in the last 6 months where you did not have access to dental care?: No Was dental information given to patient?: No HPI folow up- see comment HPI Details This is a telemedicine follow-up patient is 73-year-old gentleman Patient has seen Cardiology Dr. Correa on 13th of this month, consultation note reviewed, echocardiogram showed normal LV ejection fraction with mildly dilated ascending aorta as well as mild aortic regurgitation. Holter monitor showed no issues. EKG and cardiology office showed left axis deviation and tachycardia After evaluation patient was scheduled to be re-evaluated in 1 year Diabetes mellitus: Patient is tolerating medications no side effects he is on glipizide metformin 5 500 mg t.i.d. Blood pressure is stable patient is on lisinopril 5 mg Lipid disorder: Continue simvastatin 40 mg patient is tolerating medication Chronic nephropathy, GFR stable we are monitoring it, it stable Allergies are stable Follow-up 3 months [facility] Medical History Nephropathy Diabetes Elevated cholesterol HTN (hypertension) Surgical History Hx of hand surgery History of umbilical hernia repair History of colonoscopy Family History Father Hyperlipidemia Hx of CABG Mother HTN (hypertension) Hyperlipidemia Sister No problems noted. Son No problems noted. Son No problems noted. Daughter No problems noted. Social History Housing: House Are you a primary patient centered care specialist to a significant other at home: No Do you presently have visiting nurse or other home services: No Alcohol intake: never Patient Tobacco Use Status: Never used Tobacco e-Cigarette/Vaping Use: Never Used Second Hand Smoke Exposure: Yes service: Yes Current occupational status: retired Cognitive needs: No Hearing needs: Yes Vision needs: Yes Questionnaire PHQ-9 Over the last 2 weeks, how often have you been bothered by any of the following problems? 1. Little interest or pleasure in doing things: not at all 2. Feeling down, depressed, or hopeless: not at all 3. Trouble falling or staying asleep, or sleeping too much: not at all 4. Feeling tired or having little energy: not at all 5. Poor appetite or overeating: not at all 6. Feeling bad about yourself - or that you are a failure or have let yourself or your family down: not at all 7. Trouble concentrating on things, such as reading the newspaper or watching television: not at all 8. Moving or speaking so slowly that other people could have noticed. Or the opposite - being so fidgety or restless that you have been moving around a lot more than usual: not at all 9. Thoughts that you would be better off or of hurting yourself in some way: not at all Total score: 0 Depression Screening Interpretation: Negative Depression Screening Done: Yes 27231 - PHQ-9 Billing: Yes Source: Developed by Drs. Richard Rome, Lily Sofia, Brayden Mathias and colleagues, with an educational jf from [employer]. Thrive Questionnaire Date Thrive assessed: 04/01/24 I am a: Patient What is your living situation today?: I have a steady place to live Within the past 12 months, did the food you bought not last and you didn't have the money to get more?: Never true Within the past 12 months, did you worry whether your food would run out before you got money to buy more?: Never true Do you have trouble paying for medicines?: No Do you have trouble getting transportation to medical appointments?: No Do you have trouble paying your heating and electricity bill?: No Do you have trouble taking care of your child, family member or friend?: No Do you have trouble with day-to-day activities such as bathing, preparing meals, shopping, managing finances, etc.?: No Are you currently unemployed and looking for a job?: No Are you interested in more education?: No Please select the resources that you would like help with: None Currently or been in a relationship where the following occur: no concerns reported THRIVE Score: 0 AUDIT C Alcohol Use Questionnaire (AUDIT-C) 1. How often do you have a drink containing alcohol?: Never 3. How often do you have six or more drinks on one occasion?: Never Total Score: 0 Score Reviewed/Action Taken: Yes NGUYỄN-7 AMB Questionnaire NGUYỄN-7 Date NGUYỄN - 7 assessed: 04/01/24 Feeling nervous, anxious, or on edge: 0 = Not at all Not being able to stop or control worryin = Not at all Worrying too much about different things: 0 = Not at all Trouble relaxin = Not at all Being so restless that it is hard to sit still: 0 = Not at all Becoming easily annoyed or irritable: 0 = Not at all Feeling afraid as if something awful might happen: 0 = Not at all Total NGUYỄN-7 score (0-4 normal; 5-9 mild; 10-14 moderate; 15-21 severe): 0 Source: Developed by Drs. Richard Rome, Lily Sofia, Brayden Mathias and colleagues, with an educational jf from [employer]. NGUYỄN-7 Assessment Billing NGUYỄN-7 Assessment Tool: NGUYỄN-7 Assessment 57692 Review of Systems Const Denies chills and Denies fever(s) ENT Denies epistaxis and Denies nasal discharge Card Denies chest pain Resp Denies chest congestion, Denies cough and Denies hemoptysis GI Denies diarrhea and Denies nausea Skin/Breast Denies rash Neuro Reports no additional complaints Psych Reports no additional complaints Endo Reports no additional complaints Physical exam (Primary Care) Tobacco/Smoking Status: Tobacco use Status Tobacco use date assessed 04/01/24 04/01/24 08:36 Patient Tobacco Use Status Never used Tobacco 04/01/24 08:36 e-Cigarette/Vaping Use Never Used 04/01/24 08:36 PHQ-9: PHQ-9 Score PHQ-9: Total score 0 04/01/24 08:56 Depression Screening Interpretation: Negative Thrive Assessment: Date of Thrive Assessment Date Thrive assessed 04/01/24 04/01/24 08:39 Currently or been in a relationship where the following occur: no concerns reported Telehealth Telehealth Telehealth Platform: [employer] Location of provider rendering services: practice address Location of patient: address on file Patient Identification confirmed using: Name, : Yes Telehealth method: video (attempted) Patient verbally consented to treatment: Yes Patient verbally consented to billing insurance company: Yes Patient informed of any privacy concerns related to visit: Yes Minutes spent on Phone/Video with Pt.: 16 Assessment and Plan Assessment & Plan (1) Diabetes 1.5, managed as type 2: Code(s): E13.9 - Other specified diabetes mellitus without complications (2) Environmental allergies: Code(s): Z91.09 - Other allergy status, other than to drugs and biological substances (3) Obesity due to excess calories: Code(s): E66.09 - Other obesity due to excess calories Qualifiers: Body mass index: BMI 31.0-31.9 Obesity classification: adult class 1 (BMI 30 - 34.9) Serious obesity comorbidity presence: with serious comorbidity Qualified Code(s): E66.09 - Other obesity due to excess calories; Z68.31 - Body mass index [BMI] 31.0-31.9, adult (4) Lipid disorder: Code(s): E78.9 - Disorder of lipoprotein metabolism, unspecified (5) Hypertension, essential: Code(s): I10 - Essential (primary) hypertension (6) Nephropathy associated with another disease: Code(s): N08 - Glomerular disorders in diseases classified elsewhere (7) Sinus tachycardia: Code(s): R00.0 - Tachycardia, unspecified (8) Enlarged thoracic aorta: Code(s): I77.89 - Other specified disorders of arteries and arterioles Plan This is a telemedicine follow-up patient is 73-year-old gentleman Patient has seen Cardiology Dr. Correa on 13th of this month, consultation note reviewed, echocardiogram showed normal LV ejection fraction with mildly dilated ascending aorta as well as mild aortic regurgitation. Holter monitor showed no issues. EKG and cardiology office showed left axis deviation and tachycardia After evaluation patient was scheduled to be re-evaluated in 1 year Diabetes mellitus: Patient is tolerating medications no side effects he is on glipizide metformin 5 500 mg t.i.d. Blood pressure is stable patient is on lisinopril 5 mg Lipid disorder: Continue simvastatin 40 mg patient is tolerating medication Chronic nephropathy, GFR stable we are monitoring it, it stable Allergies are stable Follow-up 3 months 30 minute spent in care of this patient including [id number], charting, reviewing cardiology note, coordination of care. Orders: Orders Microalbumin, Random (w Creat) Today E13.9 - Other specified diabetes mellitus without complications, E66.09 - Other obesity due to excess calories, E78.9 - Disorder of lipoprotein metabolism, unspecified, I10 - Essential (primary) hypertension, I77.89 - Other specified disorders of arteries and arterioles, N08 - Glomerular disorders in diseases classified elsewhere, R00.0 - Tachycardia, unspecified, Z68.31 - Body mass index [BMI] 31.0-31.9, adult, Z91.09 - Other allergy status, other than to drugs and biological substances Complete Blood Count Auto Diff Today E13.9 - Other specified diabetes mellitus without complications, E66.09 - Other obesity due to excess calories, E78.9 - Disorder of lipoprotein metabolism, unspecified, I10 - Essential (primary) hypertension, I77.89 - Other specified disorders of arteries and arterioles, N08 - Glomerular disorders in diseases classified elsewhere, R00.0 - Tachycardia, unspecified, Z68.31 - Body mass index [BMI] 31.0-31.9, adult, Z91.09 - Other allergy status, other than to drugs and biological substances Lipid Panel Today E13.9 - Other specified diabetes mellitus without complications, E66.09 - Other obesity due to excess calories, E78.9 - Disorder of lipoprotein metabolism, unspecified, I10 - Essential (primary) hypertension, I77.89 - Other specified disorders of arteries and arterioles, N08 - Glomerular disorders in diseases classified elsewhere, R00.0 - Tachycardia, unspecified, Z68.31 - Body mass index [BMI] 31.0-31.9, adult, Z91.09 - Other allergy status, other than to drugs and biological substances TSH reflex Free T4 Today E13.9 - Other specified diabetes mellitus without complications, E66.09 - Other obesity due to excess calories, E78.9 - Disorder of lipoprotein metabolism, unspecified, I10 - Essential (primary) hypertension, I77.89 - Other specified disorders of arteries and arterioles, N08 - Glomerular disorders in diseases classified elsewhere, R00.0 - Tachycardia, unspecified, Z68.31 - Body mass index [BMI] 31.0-31.9, adult, Z91.09 - Other allergy status, other than to drugs and biological substances Hemoglobin A1c Today E13.9 - Other specified diabetes mellitus without complications, E66.09 - Other obesity due to excess calories, E78.9 - Disorder of lipoprotein metabolism, unspecified, I10 - Essential (primary) hypertension, I77.89 - Other specified disorders of arteries and arterioles, N08 - Glomerular disorders in diseases classified elsewhere, R00.0 - Tachycardia, unspecified, Z68.31 - Body mass index [BMI] 31.0-31.9, adult, Z91.09 - Other allergy status, other than to drugs and biological substances Comprehensive [place]. Panel Fast Today E13.9 - Other specified diabetes mellitus without complications, E66.09 - Other obesity due to excess calories, E78.9 - Disorder of lipoprotein metabolism, unspecified, I10 - Essential (primary) hypertension, I77.89 - Other specified disorders of arteries and arterioles, N08 - Glomerular disorders in diseases classified elsewhere, R00.0 - Tachycardia, unspecified, Z68.31 - Body mass index [BMI] 31.0-31.9, adult, Z91.09 - Other allergy status, other than to drugs and biological substances Coding Level of Care Code [facility] Level 4 (51624) Diagnoses Diabetes 1.5, managed as type 2 E13.9 Environmental allergies Z91.09 Class 1 obesity due to excess calories with serious comorbidity and body mass index (BMI) of 31.0 to 31.9 in adult E66.09; Z68.31 Body mass index: BMI 31.0-31.9 Obesity classification: adult class 1 (BMI 30 - 34.9) Serious obesity comorbidity presence: with serious comorbidity Lipid disorder E78.9 Hypertension, essential I10 Nephropathy associated with another disease N08 Sinus tachycardia R00.0 Enlarged thoracic aorta I77.89 Additional Codes NGUYỄN-7 Assessment Billing - NGUYỄN-7 Assessment Tool: NGUYỄN-7 Assessment [id number] ([id number])
== END 2024-04-01 09:01 | disposition home or self-care (01) ==
LOC: HO.HMGC 07:38
PROVIDERS: PCP Internal Medicine; Visit Provider Internal Medicine
DX: E13.9 Other specified diabetes mellitus without complications (principal); I77.89 Other specified disorders of arteries and arterioles; E66.09 Other obesity due to excess calories; Z68.31 Body mass index [BMI] 31.0-31.9, adult; Z91.09 Other allergy status, other than to drugs and biological substances; E78.9 Disorder of lipoprotein metabolism, unspecified; I10 Essential (primary) hypertension; N08 Glomerular disorders in diseases classified elsewhere; R00.0 Tachycardia, unspecified
CPT/HCPCS: 99214

== ENCOUNTER 2024-06-30 07:47 | Outpatient (REF) | payer MEDICARE, SELFPAY ==
[2024-06-30 10:09] LABS: MANUAL DIFF FLAG NO
[2024-06-30 10:14] LABS: Basophils Absolute Auto 0.1 X10*3/uL (0.0-0.2); Basophils Percent Auto 0.6 % (0-2); Eosinophils Absolute Auto 0.2 X10*3/uL (0.0-0.4); Eosinophils Percent Auto 2.5 % (0-4); Hematocrit 47.6 % (42.0-52.0); Hemoglobin 16.1 g/dl (14.0-18.0); Imm Gran Abs Auto 0.04 X10*3/uL (0.00-0.03); Imm Gran Pct Auto 0.5 % (0.0-0.4); Lymphocytes Absolute Auto 2.1 X10*3/uL (1.2-4.9); Lymphocytes Percent Auto 23.9 % (20-40); Mean Corpuscular HGB Conc 33.8 g/dl (31.0-36.0); Mean Corpuscular Hemoglobin 30.3 pg (27.0-33.0); Mean Corpuscular Volume 89.6 fL (80.0-98.0); Mean Platelet Volume 9.4 fL (9.4-12.4); Monocytes Absolute Auto 0.9 X10*3/uL (0.1-1.2); Monocytes Percent Auto 9.7 % (2-11); Neutrophils Absolute Auto 5.5 x10*3/uL (2.0-8.3); Neutrophils Percent Auto 62.8 % (45-73); Platelet Count 248 X10*3/uL (160-400); Red Blood Count 5.31 X10*6/uL (4.60-5.80); Red Cell Distribution Width 13.2 % (11.0-16.0); White Blood Count 8.8 X10*3/uL (4.8-10.8)
[2024-06-30 10:25] LABS: Estimated Average Glucose 163 mg/dL; Hemoglobin A1c % 7.3 % (<6.0)
[2024-06-30 10:39] LABS: Alanine Aminotransferase 34 U/L (0-40); Albumin Level 4.2 g/dL (3.5-5.0); Alkaline Phosphatase 62 U/L (39-117); Anion Gap 14 (12-20); Aspartate Amino Transferase 23 U/L (5-37); Bilirubin Total 0.4 mg/dL (0.0-1.0); Blood Urea Nitrogen 15 mg/dL (9-16); Calcium 9.8 mg/dL (8.4-10.2); Carbon Dioxide 28 mmol/L (22-29); Chloride 102 mmol/L (96-108); Cholesterol 164 mg/dL (<200); Estimated Glomerular Filt Rate > 60; Glucose Fasting 189 mg/dL (60-99); HDL Cholesterol 47 mg/dL (>40); LDL Cholesterol Calculated 72 mg/dL (<100); Potassium 4.8 mmol/L (3.3-5.1); Sodium 139 mmol/L (135-145); Total Protein 7.1 g/dL (6.5-8.0); Triglycerides 229 mg/dL (<150)
[2024-06-30 10:56] LABS: TSH reflex Free T4 2.88 uIU/mL (0.32-4.0)
[2024-06-30 10:58] LABS: Creatinine Urine 111.73 mg/dL; Microalbum/Creatinine Ratio Ur 116.3 ug/mg cr (<30)
== END 2024-06-30 07:48 | disposition home or self-care (01) ==
LOC: HO.HMGCLDS 07:47
PROVIDERS: PCP Internal Medicine; Visit Provider Internal Medicine
DX: E13.9 Other specified diabetes mellitus without complications (principal); Z91.09 Other allergy status, other than to drugs and biological substances; E66.09 Other obesity due to excess calories; Z68.31 Body mass index [BMI] 31.0-31.9, adult; I10 Essential (primary) hypertension; N08 Glomerular disorders in diseases classified elsewhere; R00.0 Tachycardia, unspecified; I77.89 Other specified disorders of arteries and arterioles
CPT/HCPCS: 36415; 80053; 80061; 82043; 82570; 83036; 84443; 85025

== ENCOUNTER 2024-07-06 12:03 | Outpatient (AMB) | payer MEDICARE, SELFPAY ==
--- NOTE | 2024-07-06 12:09 | MHC.PC.OV ---
Vital Signs 07/06/24 12:10 Height 5 ft 10 in Weight 220 lb BMI 31.6 BP 120/70 Blood Pressure Location Rt brachial Position Sitting Pulse 98 Pulse Source Pulse Oximeter Pulse Oximetry (%) 96 Oxygen Delivery Method Room Air Intake Visit Reasons: 4M F/u~[phone] Allergies No Known Allergies Allergy (Verified 07/06/24 12:12) Medication List - Last Reconciled 07/06/24 by Nazario Augustin MD blood sugar diagnostic (FreeStyle Lite Strips) Test blood sugar once a day blood-glucose meter (FreeStyle Lite Meter kit) Test blood sugar once a day cholecalciferol (vitamin D3) 25 mcg PO DAILY ezetimibe 10 mg PO DAILY glipizide-metformin 5-500 mg 1 tab PO BID lancets (FreeStyle Lancets) Test blood sugar once a day lisinopril 5 mg PO DAILY OneTouch Delica Lancets (lancets) Test blood sugar once a day NS OneTouch Ultra Test (blood sugar diagnostic) Test blood sugar once a day NS OneTouch Ultra2 Meter (blood-glucose meter) As directed to test blood sugar NS simvastatin 40 mg PO QPM 90 days Tobacco use date assessed: 07/06/24 Fall risk assessment: No Falls in past year Last assessed Fall Risk: 07/06/24 Dental Screening Dental Screen Date: 07/06/24 Did you have a dental visit in the last 12 months?: Yes Did you have a dental problem in the last 6 months where you did not have access to dental care?: No Was dental information given to patient?: Patient has dentist HPI 4M F/u~[phone] HPI Details Patient is a 73-year-old gentleman came in today for his regular follow-up appointment He is in his usual state of health Offer no new complaints Diabetes mellitus: Patient is tolerating medications no side effects he is on glipizide metformin 5 500 mg t.i.d. Labs for 12 June reviewed, hemoglobin A1c was 7.3, next set of lab order placed to be done in 4 months before visit Blood pressure is stable patient is on lisinopril 5 mg Lipid disorder: Continue simvastatin 40 mg patient is tolerating medication Chronic nephropathy, GFR stable we are monitoring it, it stable Allergies are stable BMI is elevated patient is having difficulty losing weight. Follow-up 4 months [facility] Medical History Nephropathy Diabetes Elevated cholesterol HTN (hypertension) Surgical History Hx of hand surgery History of umbilical hernia repair History of colonoscopy Family History Father Hyperlipidemia Hx of CABG Mother HTN (hypertension) Hyperlipidemia Sister No problems noted. Son No problems noted. Son No problems noted. Daughter No problems noted. Social History Housing: House Are you a primary health care specialist to a significant other at home: No Do you presently have visiting nurse or other home services: No Alcohol intake: never Patient Tobacco Use Status: Never used Tobacco e-Cigarette/Vaping Use: Never Used Second Hand Smoke Exposure: Yes service: Yes Current occupational status: retired Cognitive needs: No Hearing needs: Yes Vision needs: Yes Questionnaire PHQ-9 Over the last 2 weeks, how often have you been bothered by any of the following problems? 1. Little interest or pleasure in doing things: not at all 2. Feeling down, depressed, or hopeless: not at all 3. Trouble falling or staying asleep, or sleeping too much: not at all 4. Feeling tired or having little energy: not at all 5. Poor appetite or overeating: not at all 6. Feeling bad about yourself - or that you are a failure or have let yourself or your family down: not at all 7. Trouble concentrating on things, such as reading the newspaper or watching television: not at all 8. Moving or speaking so slowly that other people could have noticed. Or the opposite - being so fidgety or restless that you have been moving around a lot more than usual: not at all 9. Thoughts that you would be better off or of hurting yourself in some way: not at all Total score: 0 Depression Screening Interpretation: Negative Depression Screening Done: Yes 19702 - PHQ-9 Billing: Yes Source: Developed by Drs. Richard Rome, Lily Sofia, Brayden Mathias and colleagues, with an educational jf from [employer]. Thrive Questionnaire Date Thrive assessed: 07/06/24 I am a: Patient What is your living situation today?: I have a steady place to live Within the past 12 months, did the food you bought not last and you didn't have the money to get more?: Never true Within the past 12 months, did you worry whether your food would run out before you got money to buy more?: Never true Do you have trouble paying for medicines?: No Do you have trouble getting transportation to medical appointments?: No Do you have trouble paying your heating and electricity bill?: No Do you have trouble taking care of your child, family member or friend?: No Do you have trouble with day-to-day activities such as bathing, preparing meals, shopping, managing finances, etc.?: No Are you currently unemployed and looking for a job?: No Are you interested in more education?: No Please select the resources that you would like help with: None Currently or been in a relationship where the following occur: No concerns reported THRIVE Score: 0 AUDIT C Alcohol Use Questionnaire (AUDIT-C) 1. How often do you have a drink containing alcohol?: Never 3. How often do you have six or more drinks on one occasion?: Never Total Score: 0 Score Reviewed/Action Taken: Yes NGUYỄN-7 AMB Questionnaire NGUYỄN-7 Date NGUYỄN - 7 assessed: 07/06/24 Feeling nervous, anxious, or on edge: 0 = Not at all Not being able to stop or control worryin = Not at all Worrying too much about different things: 0 = Not at all Trouble relaxin = Not at all Being so restless that it is hard to sit still: 0 = Not at all Becoming easily annoyed or irritable: 0 = Not at all Feeling afraid as if something awful might happen: 0 = Not at all Total NGUYỄN-7 score (0-4 normal; 5-9 mild; 10-14 moderate; 15-21 severe): 0 Source: Developed by Drs. Richard Rome, Lily Sofia, Brayden Mathias and colleagues, with an educational jf from [employer]. NGUYỄN-7 Assessment Billing NGUYỄN-7 Assessment Tool: NGUYỄN-7 Assessment 32411 Review of Systems Const Denies chills and Denies fever(s) ENT Denies epistaxis and Denies nasal discharge Card Denies chest pain Resp Denies chest congestion, Denies cough and Denies hemoptysis GI Denies diarrhea and Denies nausea Skin/Breast Denies rash Neuro Reports no additional complaints Psych Reports no additional complaints Endo Reports no additional complaints Physical exam (Primary Care) Vital Signs: Last Vital Signs Pulse 98 07/06/24 12:10 BP 120/70 07/06/24 12:10 Pulse Ox 96 07/06/24 12:10 Oxygen Delivery Method Room Air 07/06/24 12:10 BMI result Body Mass Index 31.6 Tobacco/Smoking Status: Tobacco use Status Tobacco use date assessed 07/06/24 07/06/24 12:12 Patient Tobacco Use Status Never used Tobacco 07/06/24 12:12 e-Cigarette/Vaping Use Never Used 07/06/24 12:12 PHQ-9: PHQ-9 Score PHQ-9: Total score 0 07/06/24 12:19 Depression Screening Interpretation: Negative Thrive Assessment: Date of Thrive Assessment Date Thrive assessed 07/06/24 07/06/24 12:12 Currently or been in a relationship where the following occur: No concerns reported Const General: cooperative, comfortable and no acute distress Orientation/consciousness: patient oriented x3 HENMT Head: Yes normocephalic Eyes General: appearance normal, both eyes and all related structures Neck Neck: Yes supple Resp Effort & Inspection: normal respiratory effort, no cough and no stridor Cardio Rhythm: regular rhythm Heart sounds: S1 normal heart sound present and S2 normal heart sound present Skin General skin exam: turgor normal Neuro General: patient oriented x3, tone normal and moves all extremities Extrem Right lower extremity: no edema Left lower extremity: no edema Assessment and Plan Assessment & Plan (1) Diabetes 1.5, managed as type 2: Code(s): E13.9 - Other specified diabetes mellitus without complications (2) Hypertension, essential: Code(s): I10 - Essential (primary) hypertension (3) Lipid disorder: Code(s): E78.9 - Disorder of lipoprotein metabolism, unspecified (4) Environmental allergies: Code(s): Z91.09 - Other allergy status, other than to drugs and biological substances (5) Obesity due to excess calories: Code(s): E66.09 - Other obesity due to excess calories Qualifiers: Body mass index: BMI 31.0-31.9 Obesity classification: adult class 1 (BMI 30 - 34.9) Serious obesity comorbidity presence: with serious comorbidity Qualified Code(s): E66.09 - Other obesity due to excess calories; Z68.31 - Body mass index [BMI] 31.0-31.9, adult (6) Nephropathy associated with another disease: Code(s): N08 - Glomerular disorders in diseases classified elsewhere (7) Enlarged thoracic aorta: Code(s): I77.89 - Other specified disorders of arteries and arterioles Plan Patient is a 73-year-old gentleman came in today for his regular follow-up appointment He is in his usual state of health Offer no new complaints Diabetes mellitus: Patient is tolerating medications no side effects he is on glipizide metformin 5 500 mg t.i.d. Labs for 12 June reviewed, hemoglobin A1c was 7.3, next set of lab order placed to be done in 4 months before visit Blood pressure is stable patient is on lisinopril 5 mg Lipid disorder: Continue simvastatin 40 mg patient is tolerating medication Chronic nephropathy, GFR stable we are monitoring it, it stable Allergies are stable BMI is elevated patient is having difficulty losing weight. Follow-up 4 months Orders: Orders Hemoglobin A1c Today E13.9 - Other specified diabetes mellitus without complications, E66.09 - Other obesity due to excess calories, E78.9 - Disorder of lipoprotein metabolism, unspecified, I10 - Essential (primary) hypertension, I77.89 - Other specified disorders of arteries and arterioles, N08 - Glomerular disorders in diseases classified elsewhere, Z68.31 - Body mass index [BMI] 31.0-31.9, adult, Z91.09 - Other allergy status, other than to drugs and biological substances Complete Blood Count Auto Diff Today E13.9 - Other specified diabetes mellitus without complications, E66.09 - Other obesity due to excess calories, E78.9 - Disorder of lipoprotein metabolism, unspecified, I10 - Essential (primary) hypertension, I77.89 - Other specified disorders of arteries and arterioles, N08 - Glomerular disorders in diseases classified elsewhere, Z68.31 - Body mass index [BMI] 31.0-31.9, adult, Z91.09 - Other allergy status, other than to drugs and biological substances Comprehensive [place]. Panel Fast Today E13.9 - Other specified diabetes mellitus without complications, E66.09 - Other obesity due to excess calories, E78.9 - Disorder of lipoprotein metabolism, unspecified, I10 - Essential (primary) hypertension, I77.89 - Other specified disorders of arteries and arterioles, N08 - Glomerular disorders in diseases classified elsewhere, Z68.31 - Body mass index [BMI] 31.0-31.9, adult, Z91.09 - Other allergy status, other than to drugs and biological substances Lipid Panel Today E13.9 - Other specified diabetes mellitus without complications, E66.09 - Other obesity due to excess calories, E78.9 - Disorder of lipoprotein metabolism, unspecified, I10 - Essential (primary) hypertension, I77.89 - Other specified disorders of arteries and arterioles, N08 - Glomerular disorders in diseases classified elsewhere, Z68.31 - Body mass index [BMI] 31.0-31.9, adult, Z91.09 - Other allergy status, other than to drugs and biological substances Microalbumin, Random (w Creat) Today E13.9 - Other specified diabetes mellitus without complications, E66.09 - Other obesity due to excess calories, E78.9 - Disorder of lipoprotein metabolism, unspecified, I10 - Essential (primary) hypertension, I77.89 - Other specified disorders of arteries and arterioles, N08 - Glomerular disorders in diseases classified elsewhere, Z68.31 - Body mass index [BMI] 31.0-31.9, adult, Z91.09 - Other allergy status, other than to drugs and biological substances Coding Level of Care Code Est Pt Level 4 (13766) Complex EM visit Add On G2211 Diagnoses Diabetes 1.5, managed as type 2 E13.9 Hypertension, essential I10 Lipid disorder E78.9 Environmental allergies Z91.09 Class 1 obesity due to excess calories with serious comorbidity and body mass index (BMI) of 31.0 to 31.9 in adult E66.09; Z68.31 Body mass index: BMI 31.0-31.9 Obesity classification: adult class 1 (BMI 30 - 34.9) Serious obesity comorbidity presence: with serious comorbidity Nephropathy associated with another disease N08 Enlarged thoracic aorta I77.89 Additional Codes NGUYỄN-7 Assessment Billing - NGUYỄN-7 Assessment Tool: NGUYỄN-7 Assessment [id number] ([id number])
[2024-07-06 12:10] VITALS: BP 120/70; PULSE 98; O2SAT 96; BMI 31.6
== END 2024-07-06 12:27 | disposition home or self-care (01) ==
PROVIDERS: PCP Internal Medicine; Visit Provider Internal Medicine
DX: E13.9 Other specified diabetes mellitus without complications (principal); I77.89 Other specified disorders of arteries and arterioles; I10 Essential (primary) hypertension; E78.9 Disorder of lipoprotein metabolism, unspecified; Z91.09 Other allergy status, other than to drugs and biological substances; E66.09 Other obesity due to excess calories; Z68.31 Body mass index [BMI] 31.0-31.9, adult; N08 Glomerular disorders in diseases classified elsewhere
CPT/HCPCS: 99214; G2211

== ENCOUNTER 2024-11-05 07:35 | Outpatient (REF) | payer MEDICARE, SELFPAY ==
[2024-11-05 09:58] LABS: MANUAL DIFF FLAG NO
[2024-11-05 10:04] LABS: Basophils Absolute Auto 0.1 X10*3/uL (0.0-0.2); Basophils Percent Auto 0.5 % (0-2); Eosinophils Absolute Auto 0.3 X10*3/uL (0.0-0.4); Eosinophils Percent Auto 2.5 % (0-4); Hematocrit 48.6 % (42.0-52.0); Hemoglobin 16.6 g/dl (14.0-18.0); Imm Gran Abs Auto 0.04 X10*3/uL (0.00-0.03); Imm Gran Pct Auto 0.4 % (0.0-0.4); Lymphocytes Absolute Auto 2.5 X10*3/uL (1.2-4.9); Mean Corpuscular HGB Conc 34.2 g/dl (31.0-36.0); Mean Corpuscular Hemoglobin 30.4 pg (27.0-33.0); Mean Platelet Volume 9.1 fL (9.4-12.4); Monocytes Absolute Auto 1.1 X10*3/uL (0.1-1.2); Monocytes Percent Auto 11.3 % (2-11); Neutrophils Absolute Auto 6.1 x10*3/uL (2.0-8.3); Neutrophils Percent Auto 60.3 % (45-73); Platelet Count 268 X10*3/uL (160-400); Red Blood Count 5.46 X10*6/uL (4.60-5.80); Red Cell Distribution Width 13.2 % (11.0-16.0); White Blood Count 10.1 X10*3/uL (4.8-10.8)
[2024-11-05 10:15] LABS: Estimated Average Glucose 163 mg/dL; Hemoglobin A1C 233.6702 umol/L; Hemoglobin A1c % 7.3 % (<6.0); Total Hemoglobin (HGBA1C) 4154.0931 umol/L
[2024-11-05 10:31] LABS: Alanine Aminotransferase 38 U/L (0-40); Albumin Level 4.3 g/dL (3.5-5.0); Alkaline Phosphatase 63 U/L (39-117); Anion Gap 14 (12-20); Aspartate Amino Transferase 30 U/L (5-37); Bilirubin Total 0.5 mg/dL (0.0-1.0); Blood Urea Nitrogen 17 mg/dL (9-16); Calcium 9.6 mg/dL (8.4-10.2); Carbon Dioxide 28 mmol/L (22-29); Chloride 102 mmol/L (96-108); Cholesterol 180 mg/dL (<200); Estimated Glomerular Filt Rate 58; Glucose Fasting 185 mg/dL (60-99); HDL Cholesterol 46 mg/dL (>40); LDL Cholesterol Calculated 91 mg/dL (<100); Potassium 5.1 mmol/L (3.3-5.1); Sodium 139 mmol/L (135-145); Total Protein 7.5 g/dL (6.5-8.0); Triglycerides 217 mg/dL (<150)
[2024-11-05 11:04] LABS: Creatinine Urine 138.03 mg/dL; Microalbum/Creatinine Ratio Ur 10.8 ug/mg cr (<30)
== END 2024-11-05 07:36 | disposition home or self-care (01) ==
LOC: HO.HMGCLDS 07:35
PROVIDERS: PCP Internal Medicine; Visit Provider Internal Medicine
DX: E13.9 Other specified diabetes mellitus without complications (principal); E78.9 Disorder of lipoprotein metabolism, unspecified; I10 Essential (primary) hypertension; N08 Glomerular disorders in diseases classified elsewhere; Z91.09 Other allergy status, other than to drugs and biological substances; E66.09 Other obesity due to excess calories; Z68.31 Body mass index [BMI] 31.0-31.9, adult; I77.89 Other specified disorders of arteries and arterioles
CPT/HCPCS: 36415; 80053; 80061; 82043; 82570; 83036; 85025

== ENCOUNTER 2024-11-09 09:25 | Outpatient (AMB) | payer MEDICARE, SELFPAY ==
[2024-11-09 09:27] VITALS: BP 138/78; PULSE 100; O2SAT 93; BMI 31.2
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
== END 2024-11-09 09:48 | disposition home or self-care (01) ==
PROVIDERS: PCP Internal Medicine; Visit Provider Internal Medicine
DX: E13.9 Other specified diabetes mellitus without complications (principal); I10 Essential (primary) hypertension; E78.9 Disorder of lipoprotein metabolism, unspecified; E66.09 Other obesity due to excess calories; Z68.31 Body mass index [BMI] 31.0-31.9, adult; E55.9 Vitamin D deficiency, unspecified

== ENCOUNTER → 2024-11-09 09:25 | Outpatient (BNVA) | payer MEDICARE, SELFPAY | PROVIDERS: PCP Internal Medicine; Visit Provider Internal Medicine | DX: I10 Essential (primary) hypertension (principal); E78.5 Hyperlipidemia, unspecified; E13.9 Other specified diabetes mellitus without complications; E78.9 Disorder of lipoprotein metabolism, unspecified; E66.09 Other obesity due to excess calories; E55.9 Vitamin D deficiency, unspecified; Z68.31 Body mass index [BMI] 31.0-31.9, adult | CPT/HCPCS: 96127; 99212 ==

== ENCOUNTER 2025-03-02 07:44 | Outpatient (REF) | payer MEDICARE, SELFPAY ==
[2025-03-02 09:59] LABS: MANUAL DIFF FLAG NO
[2025-03-02 10:06] LABS: Basophils Percent Auto 0.4 % (0-2); Eosinophils Absolute Auto 0.3 X10*3/uL (0.0-0.4); Eosinophils Percent Auto 2.8 % (0-4); Hematocrit 47.1 % (42.0-52.0); Imm Gran Abs Auto 0.05 X10*3/uL (0.00-0.03); Imm Gran Pct Auto 0.6 % (0.0-0.4); Lymphocytes Absolute Auto 2.2 X10*3/uL (1.2-4.9); Lymphocytes Percent Auto 24.2 % (20-40); Mean Corpuscular Hemoglobin 30.1 pg (27.0-33.0); Mean Corpuscular Volume 88.5 fL (80.0-98.0); Mean Platelet Volume 9.3 fL (9.4-12.4); Monocytes Absolute Auto 0.9 X10*3/uL (0.1-1.2); Neutrophils Absolute Auto 5.6 x10*3/uL (2.0-8.3); Platelet Count 265 X10*3/uL (160-400); Red Blood Count 5.32 X10*6/uL (4.60-5.80); Red Cell Distribution Width 13.2 % (11.0-16.0); White Blood Count 9.1 X10*3/uL (4.8-10.8)
[2025-03-02 10:14] LABS: Estimated Average Glucose 169 mg/dL; Hemoglobin A1C 240.4597 umol/L; Hemoglobin A1c % 7.5 % (<6.0); Total Hemoglobin (HGBA1C) 4139.2631 umol/L
[2025-03-02 10:48] LABS: Alanine Aminotransferase 38 U/L (0-40); Albumin Level 4.2 g/dL (3.5-5.0); Alkaline Phosphatase 64 U/L (39-117); Anion Gap 14 (12-20); Aspartate Amino Transferase 31 U/L (5-37); Bilirubin Total 0.6 mg/dL (0.0-1.0); Blood Urea Nitrogen 20 mg/dL (9-16); Calcium 9.4 mg/dL (8.4-10.2); Carbon Dioxide 27 mmol/L (22-29); Chloride 102 mmol/L (96-108); Cholesterol 163 mg/dL (<200); Estimated Glomerular Filt Rate 56; Glucose Fasting 175 mg/dL (60-99); HDL Cholesterol 49 mg/dL (>40); LDL Cholesterol Calculated 82 mg/dL (<100); Potassium 4.5 mmol/L (3.3-5.1); Sodium 138 mmol/L (135-145); Triglycerides 164 mg/dL (<150)
[2025-03-02 11:00] LABS: Creatinine Urine 109.56 mg/dL; Microalbum/Creatinine Ratio Ur 26.4 ug/mg cr (<30)
[2025-03-06 15:39] LABS: Vitamin D 25-OH, D2 <4 ng/mL; Vitamin D 25-OH, D3 32 ng/mL; Vitamin D 25-OH, Total 32 ng/mL (30-100)
== END 2025-03-02 07:45 | disposition home or self-care (01) ==
LOC: HO.HMGCLDS 07:44
PROVIDERS: PCP Internal Medicine; Visit Provider Internal Medicine
DX: E66.09 Other obesity due to excess calories (principal); Z68.31 Body mass index [BMI] 31.0-31.9, adult; E13.9 Other specified diabetes mellitus without complications; E78.9 Disorder of lipoprotein metabolism, unspecified; I10 Essential (primary) hypertension; E55.9 Vitamin D deficiency, unspecified
CPT/HCPCS: 36415; 80053; 80061; 82043; 82306; 82570; 83036; 85025

== ENCOUNTER 2025-03-11 09:23 | Outpatient (AMB) | payer MEDICARE, SELFPAY ==
[2025-03-11 09:26] VITALS: BP 112/70; PULSE 101; O2SAT 95; BMI 31.0
--- NOTE | 2025-03-11 09:26 | A.OFFPC_ITS ---
Vital Signs 03/11/25 09:26 Height 5 ft 10 in Weight 216 lb 2 oz BMI 31.0 BP 112/70 Blood Pressure Location Lt brachial Position Sitting Pulse 101 H Pulse Source Pulse Oximeter Pulse Oximetry (%) 95 Oxygen Delivery Method Room Air Intake Visit Reasons: 4 months f/up - see comments Allergies No Known Allergies Allergy (Verified 03/11/25 09:26) Medication List - Last Reconciled 03/11/25 by Nazario Augustin MD blood sugar diagnostic (FreeStyle Lite Strips) Test blood sugar once a day blood-glucose meter (FreeStyle Lite Meter kit) Test blood sugar once a day cholecalciferol (vitamin D3) 25 mcg PO DAILY ezetimibe 10 mg PO DAILY glipizide-metformin 5-500 mg 1 tab PO BID lancets (FreeStyle Lancets) Test blood sugar once a day lisinopril 5 mg PO DAILY OneTouch Delica Lancets (lancets) Test blood sugar once a day NS OneTouch Ultra Test (blood sugar diagnostic) Test blood sugar once a day NS OneTouch Ultra2 Meter (blood-glucose meter) As directed to test blood sugar NS simvastatin 40 mg PO QPM 90 days Tobacco use date assessed: 03/11/25 Fall risk assessment: No Falls in past year Last assessed Fall Risk: 03/11/25 Dental Screening Dental Screen Date: 03/11/25 Did you have a dental visit in the last 12 months?: Yes Did you have a dental problem in the last 6 months where you did not have access to dental care?: No Was dental information given to patient?: Patient has dentist HPI 4 months f/up - see comments HPI Details History - The patient is a 74 year old male pres enting with routine follow-up for chronic conditions management. - Current medications include Zetia, gli pizide, metformin, lisinopril, and simvastatin. - Blood tests were conducted on March 02; results show hemoglobin A1c has slightly worsened from 7.3% to 7.5%. - Complete blood count came back normal, with no signs of anemia. - Electrolytes were within normal limits ; kidney functions are noted to be stable, despite being slightly compromised. - Liver enzymes and cholesterol levels a re reported as stable. - The patient denies experiencing any di zziness or lightheadedness beyond chronic vertigo, which has been present for several years. - Blood pressure was noted to fluctuate; 138 systolic in November, now at 112 systolic. - The patient denies any issues with uri nation or excessive nighttime urination. - The patient has a history of chronic k idney disease, with stable function as per recent laboratory evaluation. Problem List - Diabetes Mellitus Type 2 - Hypertension - Chronic Vertigo - Chronic Kidney Disease - obesity Patient Instructions - Continue taking medications as prescri bed. - Ensure adequate water intake daily, es pecially given slightly low blood pressure. - Schedule and complete lab tests prior to the next follow-up visit in four months. - Continue monitoring any symptoms of di zziness or vertigo. - Attend the upcoming cardiology appoint ment in May. 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 Son No problems noted. Son No problems noted. Daughter No problems noted. Social History Housing: House Are you a primary family member caretaker to a significant other at home: No Do you presently have visiting nurse or other home services: No Alcohol intake: never Patient Tobacco Use Status: Never used Tobacco e-Cigarette/Vaping Use: Never Used Second Hand Smoke Exposure: Yes service: Yes Current occupational status: retired Cognitive needs: No Hearing needs: Yes Vision needs: Yes Questionnaire Thrive Questionnaire Date Thrive assessed: 03/11/25 I am a: Patient What is your living situation today?: I have a steady place to live Within the past 12 months, did the food you bought not last and you didn't have the money to get more?: Never true Within the past 12 months, did you worry whether your food would run out before you got money to buy more?: Never true Do you have trouble paying for medicines?: No Do you have trouble getting transportation to medical appointments?: No Do you have trouble paying your heating and electricity bill?: No Do you have trouble taking care of your child, family member or friend?: No Do you have trouble with day-to-day activities such as bathing, preparing meals, shopping, managing finances, etc.?: No Are you currently unemployed and looking for a job?: No Are you interested in more education?: No Please select the resources that you would like help with: None Currently or been in a relationship where the following occur: No concerns reported THRIVE Score: 0 AUDIT C Alcohol Use Questionnaire (AUDIT-C) 1. How often do you have a drink containing alcohol?: Monthly or less 2. How many drinks containing alcohol do you have on a typical day when you are drinking?: 1 or 2 3. How often do you have six or more drinks on one occasion?: Never Total Score: 1 Score Reviewed/Action Taken: Yes NGUYỄN-7 AMB Questionnaire NGUYỄN-7 Date NGUYỄN - 7 assessed: 03/11/25 Feeling nervous, anxious, or on edge: 0 = Not at all Not being able to stop or control worryin = Not at all Worrying too much about different things: 0 = Not at all Trouble relaxin = Not at all Being so restless that it is hard to sit still: 0 = Not at all Becoming easily annoyed or irritable: 0 = Not at all Feeling afraid as if something awful might happen: 0 = Not at all Total NGUYỄN-7 score (0-4 normal; 5-9 mild; 10-14 moderate; 15-21 severe): 0 Source: Developed by Drs. Richard Rome, Lily Sofia, Brayden Mathias and colleagues, with an educational jf from [employer]. NGUYỄN-7 Assessment Billing NGUYỄN-7 Assessment Tool: NGUYỄN-7 Assessment 21491 Physical exam (Primary Care) Vital Signs: Last Vital Signs Pulse 101 H 03/11/25 09:26 BP 112/70 03/11/25 09:26 Pulse Ox 95 03/11/25 09:26 Oxygen Delivery Method Room Air 03/11/25 09:26 BMI result Body Mass Index 31.0 Tobacco/Smoking Status: Tobacco use Status Tobacco use date assessed 03/11/25 03/11/25 09:27 Patient Tobacco Use Status Never used Tobacco 03/11/25 09:27 e-Cigarette/Vaping Use Never Used 03/11/25 09:27 Thrive Assessment: Date of Thrive Assessment Date Thrive assessed 03/11/25 03/11/25 09:27 Currently or been in a relationship where the following occur: No concerns reported Coding Level of Care Code Est Pt Level 4 (60788) Complex EM visit Add On G2211 Diagnoses Hypertension, essential I10 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, managed as type 2 E13.9 Class 1 obesity due to excess calories with serious comorbidity and body mass index (BMI) of 31.0 to 31.9 in adult E66.09; Z68.31 Body mass index: BMI 31.0-31.9 Obesity classification: adult class 1 (BMI 30 - 34.9) Serious obesity comorbidity presence: with serious comorbidity Vertigo R42 Nephropathy associated with another disease N08 Additional Codes NGUYỄN-7 Assessment Billing - NGUYỄN-7 Assessment Tool: NGUYỄN-7 Assessment 92340 ([id number]) Assessment & Plan Assessment & Plan (1) Hypertension, essential: Code(s): I10 - Essential (primary) hypertension Category: Medical (2) Lipid disorder: Code(s): E78.9 - Disorder of lipoprotein metabolism, unspecified Category: Medical (3) Diabetes 1.5, managed as type 2: Code(s): E13.9 - Other specified diabetes mellitus without complications Category: Medical (4) Obesity due to excess calories: Code(s): E66.09 - Other obesity due to excess calories Category: Medical Qualifiers: Body mass index: BMI 31.0-31.9 Obesity classification: adult class 1 (BMI 30 - 34.9) Serious obesity comorbidity presence: with serious comorbidity Qualified Code(s): E66.09 - Other obesity due to excess calories; Z68.31 - Body mass index [BMI] 31.0-31.9, adult (5) Vertigo: Code(s): R42 - Dizziness and giddiness Category: Medical (6) Nephropathy associated with another disease: Code(s): N08 - Glomerular disorders in diseases classified elsewhere Category: Medical Plan History - The patient is a 74 year old male presenting with routine follow-up for chronic conditions management. - Current medications include Zetia, glipizide, metformin, lisinopril, and simvastatin. - Blood tests were conducted on March 02; results show hemoglobin A1c has slightly worsened from 7.3% to 7.5%. - Complete blood count came back normal, with no signs of anemia. - Electrolytes were within normal limits; kidney functions are noted to be stable, despite being slightly compromised. - Liver enzymes and cholesterol levels are reported as stable. - The patient denies experiencing any dizziness or lightheadedness beyond chronic vertigo, which has been present for several years. - Blood pressure was noted to fluctuate; 138 systolic in November, now at 112 sy stolic. - The patient denies any issues with urination or excessive nighttime urination. - The patient has a history of chronic kidney disease, with stable function as per recent laboratory evaluation. Problem List - Diabetes Mellitus Type 2 - Hypertension - Chronic Vertigo - Chronic Kidney Disease - obesity Patient Instructions - Continue taking medications as prescribed. - Ensure adequate water intake daily, especially given slightly low blood pressure. - Schedule and complete lab tests prior to the next follow-up visit in four months. - Continue monitoring any symptoms of dizziness or vertigo. - Attend the upcoming cardiology appointment in May. Orders: Orders Microalbumin, Random (w Creat) Today E13.9 - Other specified diabetes mellitus without complications, E66.09 - Other obesity due to excess calories, E78.9 - Disorder of lipoprotein metabolism, unspecified, I10 - Essential (primary) hypertension, N08 - Glomerular disorders in diseases classified elsewhere, R42 - Dizziness and giddiness, Z68.31 - Body mass index [BMI] 31.0-31.9, adult Comprehensive [place]. Panel Fast Today E13.9 - Other specified diabetes mellitus without complications, E66.09 - Other obesity due to excess calories, E78.9 - Disorder of lipoprotein metabolism, unspecified, I10 - Essential (primary) hypertension, N08 - Glomerular disorders in diseases classified elsewhere, R42 - Dizziness and giddiness, Z68.31 - Body mass index [BMI] 31.0-31.9, adult Hemoglobin A1c Today E13.9 - Other specified diabetes mellitus without complications, E66.09 - Other obesity due to excess calories, E78.9 - Disorder of lipoprotein metabolism, unspecified, I10 - Essential (primary) hypertension, N08 - Glomerular disorders in diseases classified elsewhere, R42 - Dizziness and giddiness, Z68.31 - Body mass index [BMI] 31.0-31.9, adult
== END 2025-03-11 09:43 | disposition home or self-care (01) ==
LOC: HO.HMCC 09:24
PROVIDERS: PCP Internal Medicine; Visit Provider Internal Medicine
DX: I10 Essential (primary) hypertension (principal); E78.9 Disorder of lipoprotein metabolism, unspecified; E13.9 Other specified diabetes mellitus without complications; E66.09 Other obesity due to excess calories; Z68.31 Body mass index [BMI] 31.0-31.9, adult; R42 Dizziness and giddiness; N08 Glomerular disorders in diseases classified elsewhere

== ENCOUNTER → 2025-03-11 09:23 | Outpatient (BNVA) | payer MEDICARE, SELFPAY | PROVIDERS: PCP Internal Medicine; Visit Provider Internal Medicine | DX: I12.9 Hypertensive chronic kidney disease with stage 1 through stage 4 chronic kidney disease, or unspecified chronic kidney disease (principal); E13.22 Other specified diabetes mellitus with diabetic chronic kidney disease; N18.9 Chronic kidney disease, unspecified; E78.9 Disorder of lipoprotein metabolism, unspecified; E66.09 Other obesity due to excess calories; R42 Dizziness and giddiness; N08 Glomerular disorders in diseases classified elsewhere; Z68.31 Body mass index [BMI] 31.0-31.9, adult; Z79.84 Long term (current) use of oral hypoglycemic drugs; Z79.899 Other long term (current) drug therapy | CPT/HCPCS: 96127; 99212 ==

== ENCOUNTER → 2025-05-03 09:53 | Outpatient (REF) | payer MEDICARE, SELFPAY ==
--- NOTE | 2025-05-03 09:55 | CA_ITS ---
Transthoracic Echocardiogram Patient (Last, First, Middle): Moy Thomas A Gender: Male Date of : 1950 Age: 74 Procedure Date: 05/03/2025 Procedure Type: Transthoracic Echocardiogram Location: OP Height: 180.34 cm Weight: 97.98 kg BSA: 2.18 m2 Heart Rate: bpm BP: 112 / 70 mmHg Clerical Transcriber: Referring MD: Mariano Correa MD Corporate Operations Compliance Manager: Mariano Correa MD Symptoms: I77.89 - Other specified disorders of arteries and arterioles Study Quality: Good ECG Rhythm: Sinus Conclusions: - 1. Normal LV ejection fraction of 60 65% with mild LVH with grade 1 diastolic dysfunction 2. Trivial aortic regurgitation 3. Mildly dilated ascending aorta 4. Normal RV systolic pressure 5. No gross pericardial effusion Findings Left Ventricle Normal left ventricular size and systolic function. There is mildly increased left ventricular wall thickness. The visually estimated ejection fraction is between 60-65%. Spectral Doppler is indicative of an impaired relaxation filling pattern. E/E prime ratio is <8, consistent with normal filling pressures. Evidence suggests grade I (mild) diastolic dysfunction. Right Ventricle Normal right ventricular cavity size and systolic function. Atria Both atria are normal in size. Interatrial shunt cannot be excluded. Aortic Valve The aortic valve structure and function is likely normal. There is no aortic valve stenosis. There is trace (trivial) aortic valve regurgitation. Mitral Valve Normal mitral valve structure and function. There is trace mitral valve regurgitation. There is no mitral valve stenosis. Pulmonic Valve The pulmonic valve is likely normal. Tricuspid Valve Normal tricuspid valve structure. There is trace tricuspid valve regurgitation. The right ventricular systolic pressure is normal. The right ventricular systolic pressure is 23 mmHg. Normal right atrial pressure. There is no evidence of pulmonary hypertension. Great Vessels The pulmonary artery was not well visualized. There is mild dilatation of the ascending aorta measuring 3.90 cm. Venous The inferior vena cava is normal in size and collapses greater than 50% with inspiration. Pericardium/Pleural There is no evidence of pericardial effusion. Prior Study Comparison No significant change compared to prior study dated: 01/07/2024. Measurements 2D Linear Measurements IVSd: 1.25 0.6-0.9/0.6-1.0 cm LVIDd: 5.18 3.9-5.3/4.2-5.9 cm LVIDd Index: 2.38 2.4-3.2/2.2-3.1 cm/m2 LVIDs: 3.21 2.0-3.6 cm LVPWd: 1.27 0.7-1.1 cm Ao Root: 3.70 2.1-3.5 cm LA Diam: 4.10 2.7-3.8/3.0-4.0 cm LAIDs Index: 1.88 1.5-2.3 cm/m2 LV Mass: 387.93 67-162/88-224 g LV Mass Index: 177.95 43-95/49-115 g/m2 LVOT Diam: 2.10 3.0+(-)1.3 cm 2D Systolic Function EF 4C: 64.10 >55% EF 2C: 56.70 >55% EF BiP: 61.90 >55% Mitral Valve MV Pk E: 0.44 MV PK A: 0.68 MV Decel Time: 213.00 E/A: 0.70 E'Lateral: 4.79 E'Medial: 5.44 E/E' Med: 8.10 E/E' Lat: 9.20 PHT: 62.00 MVA PHT: 3.55 Decel Sedgwick: 2.07 Aortic Valve AoV Pk Romero: 1.92 AoV Mn Romero: 1.29 AoV VTI: 0.34 AoV Pk Grad: 15.00 Aov Mn Grad: 8.00 COMFORT Cont.VTI: 1.41 LVOT LVOT Pk Romero: 0.80 LVOT Mn Romero: 0.56 LVOT VTI: 0.14 LVOT Pk Grad: 3.00 LVOT Mn Grad: 1.00 LVOT Diam: 2.10 LVOT Area: 3.46 Diastolic Function MV Pk E: 0.44 MV Pk A: 0.68 E/A: 0.70 E'Medial: 5.44 E/E' Med: 8.10 E' Laterial: 4.79 E/E' Lat: 9.20 Right Ventricle TAPSE (mm): 18.00 Tricuspid Valve TR Pk Romero: 2.25 TR Pk Grad: 20.00 RA Press: 3.00 RVSP: 23.00 Great Vessels Aorta Ao Root-2D: 3.70 2.0-3.7 cm Ao Asc: 3.90 2.1-3.4 cm Pulmonary Valve PV Pk Romero: 1.15 Peak PV Grad: 5.00 Updated in Other Vendor System with Status of Final Mariano Correa MD electronically signed on 05/03/2025 4:22:18 PM with status of Final
== END ==
LOC: HO.CARD 09:53
PROVIDERS: PCP Internal Medicine; Visit Provider Internal Medicine Cardiovascular Disease
DX: I77.89 Other specified disorders of arteries and arterioles (principal); R00.0 Tachycardia, unspecified
CPT/HCPCS: 93306

== ENCOUNTER → 2025-05-03 09:55 | Outpatient (BNV) | payer MEDICARE, SELFPAY | PROVIDERS: PCP Internal Medicine; Visit Provider Internal Medicine Cardiovascular Disease | DX: I77.89 Other specified disorders of arteries and arterioles (principal) | CPT/HCPCS: 93306 ==

== ENCOUNTER 2025-05-10 10:36 | Outpatient (AMB) | payer MEDICARE, SELFPAY ==
[2025-05-10 10:39] VITALS: BP 120/80; PULSE 93; BMI 30.7
--- NOTE | 2025-05-10 10:39 | A.OFFVIS_ITS ---
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 Accompanied by: Spouse Allergies No Known Allergies Allergy (Verified 03/11/25 09:26) Medication List - Last Reconciled 05/10/25 by Mariano Correa MD blood sugar diagnostic (FreeStyle Lite Strips) Test blood sugar once a day blood-glucose meter (FreeStyle Lite Meter kit) Test blood sugar once a day cholecalciferol (vitamin D3) 25 mcg PO DAILY ezetimibe 10 mg PO DAILY glipizide-metformin 5-500 mg 1 tab PO BID lancets (FreeStyle Lancets) Test blood sugar once a day lisinopril 5 mg PO DAILY OneTouch Delica Lancets (lancets) Test blood sugar once a day NS OneTouch Ultra Test (blood sugar diagnostic) Test blood sugar once a day NS OneTouch Ultra2 Meter (blood-glucose meter) As directed to test blood sugar NS simvastatin 40 mg PO QPM 90 days HPI Comments Details: Winter comes for follow-up. Denies any cardiac complaints. Remains active in his day-to-day life. Denies any exertional chest pain or shortness of breath. D enies any palpitations, lightheadedness, syncope. He says blood pressures been generally well controlled. He denies any orthopnea, PND, leg edema. His recent echocardiogram shows stable mild enlargement of thoracic aorta. [facility] Medical History Nephropathy Diabetes Elevated cholesterol HTN (hypertension) Surgical History Hx of hand surgery History of umbilical hernia repair History of colonoscopy Family History Father Hyperlipidemia Hx of CABG Mother HTN (hypertension) Hyperlipidemia Sister No problems noted. Son No problems noted. Son No problems noted. Daughter No problems noted. Social History Housing: House Are you a primary pediatric care coordinator to a significant other at home: No Do you presently have visiting nurse or other home services: No Alcohol intake: never Patient Tobacco Use Status: Never used Tobacco e-Cigarette/Vaping Use: Never Used Second Hand Smoke Exposure: Yes service: Yes Current occupational status: retired Cognitive needs: No Hearing needs: Yes Vision needs: Yes Review of Systems Const Denies chills, Denies fatigue, Denies fever(s), Denies frequent falls, Denies weakness, Denies weight gain and Denies weight loss ENT Denies dizziness Card Denies chest pain, Denies leg edema, Denies lightheadedness, Denies palpitations, Denies dyspnea, Denies dyspnea on exertion, Denies orthopnea and Denies other (loss of consciousness) Resp Denies cough, Denies dyspnea and Denies dyspnea on exertion GI Denies hematochezia and Denies change in stool character Musc Denies abnormal gait, Denies muscle weakness, Denies numbness, Denies radiating pain into limb and Denies tingling Neuro Denies Abnormal speech present, Denies abnormal gait, Denies dizziness, Denies frequent falls, Denies numbness, Denies tingling and Denies weakness Endo Denies fatigue and Denies palpitations Physical Exam Vital Signs: Last Vital Signs Pulse 93 05/10/25 10:39 BP 120/80 05/10/25 10:39 BMI result Body Mass Index 30.7 Const General: cooperative, comfortable, no acute distress, alert, awake, anxious and well groomed Nutritional Appearance: obese Orientation/consciousness: patient oriented x3 Limitations: no limitations HEENT Head: Yes normocephalic and Yes atraumatic Neck Neck: Yes trachea midline, Yes supple and Yes no JVD Resp Effort & Inspection: normal respiratory effort Auscultation: clear to auscultation bilaterally Cardio Jugular venous distension: no JVD Palpation: normal PMI Rate: tachycardic Rhythm: regular rhythm Heart sounds: S1 normal heart sound present, S2 normal heart sound present, no click, no gallops, no murmurs and no rubs GI Auscultation: normal bowel sounds Skin General skin exam: no rashes or lesions noted Neuro General: patient oriented x3 and no focal motor deficits Speech: No Abnormal speech present Extrem General: Yes no clubbing, cyanosis or edema Office Procedures EKG Details: EKG shows normal sinus rhythm normal EKG [id number], Complete Assessment & Plan Assessment & Plan (1) Enlarged thoracic aorta: Code(s): I77.89 - Other specified disorders of arteries and arterioles Category: Medical Plan: Mildly enlarged thoracic aorta which has remained stable. No interventions required from surgical perspective. Continue aggressive medical intervention. Advised to avoid sudden strenuous isometric exercise. Follow-up echocardiogram in 2 years time. Continue aggressive blood pressure control, see below. Continue aggressive diabetes management as lipid management. He understands management. (2) Hypertension, essential: Code(s): I10 - Essential (primary) hypertension Category: Medical Plan: Hypertension which is well optimized. Advised to monitor blood pressure at home maintain a log. Goal blood pressure less than 130/84. Low-salt diet was advised. Continue current therapy. Will follow up in the clinic in 1 year's time, sooner p.r.n.. Thank you for allowing me to partake in his care Coding Level of Care Code Est Pt Level 4 (31581) Complex EM visit Add On G2211 Diagnoses Enlarged thoracic aorta I77.89 Hypertension, essential I10 CPT Codes EKG - CPT: 87263-[id number], Complete ([id number])
== END 2025-05-10 10:56 | disposition home or self-care (01) ==
LOC: HO.HCS 10:38
PROVIDERS: PCP Internal Medicine; Visit Provider Internal Medicine Cardiovascular Disease
DX: I77.89 Other specified disorders of arteries and arterioles (principal); I10 Essential (primary) hypertension
CPT/HCPCS: 93010; 99214; G2211

== ENCOUNTER → 2025-05-10 10:36 | Outpatient (BNVA) | payer MEDICARE, SELFPAY | PROVIDERS: PCP Internal Medicine; Visit Provider Internal Medicine Cardiovascular Disease | DX: I10 Essential (primary) hypertension (principal); I77.89 Other specified disorders of arteries and arterioles | CPT/HCPCS: 93005; 99212 ==

== ENCOUNTER 2025-07-07 07:38 | Outpatient (REF) | payer MEDICARE, SELFPAY ==
[2025-07-07 10:31] LABS: Hemoglobin A1C 234.1870 umol/L; Total Hemoglobin (HGBA1C) 3952.5722 umol/L
[2025-07-07 10:39] LABS: Alanine Aminotransferase 34 U/L (0-40); Albumin Level 4.4 g/dL (3.5-5.0); Alkaline Phosphatase 65 U/L (39-117); Anion Gap 16 (12-20); Aspartate Amino Transferase 28 U/L (5-37); Blood Urea Nitrogen 20 mg/dL (9-16); Calcium 9.2 mg/dL (8.4-10.2); Carbon Dioxide 26 mmol/L (22-29); Chloride 104 mmol/L (96-108); Estimated Glomerular Filt Rate 58; Potassium 4.7 mmol/L (3.3-5.1); Sodium 141 mmol/L (135-145); Total Protein 7.1 g/dL (6.5-8.0)
[2025-07-07 12:02] LABS: Microalbum/Creatinine Ratio Ur 20.6 ug/mg cr (<30)
== END 2025-07-07 07:39 | disposition home or self-care (01) ==
LOC: HO.HMGCLDS 07:38
PROVIDERS: PCP Internal Medicine; Visit Provider Internal Medicine
DX: I10 Essential (primary) hypertension (principal); E13.9 Other specified diabetes mellitus without complications; N08 Glomerular disorders in diseases classified elsewhere; E66.09 Other obesity due to excess calories; R42 Dizziness and giddiness; E78.9 Disorder of lipoprotein metabolism, unspecified; Z68.31 Body mass index [BMI] 31.0-31.9, adult
CPT/HCPCS: 36415; 80053; 82043; 82570; 83036

== ENCOUNTER 2025-07-13 09:22 | Outpatient (AMB) | payer MEDICARE, SELFPAY ==
[2025-07-13 09:29] VITALS: BP 122/80; PULSE 94; O2SAT 95; BMI 30.6
--- NOTE | 2025-07-13 09:29 | A.OFFPC_ITS ---
Vital Signs 07/13/25 09:29 Height 5 ft 10 in Weight 213 lb BMI 30.6 BP 122/80 Blood Pressure Location Lt brachial Position Sitting Pulse 94 Pulse Source Pulse Oximeter Pulse Oximetry (%) 95 Intake Visit Reasons: Annual PE Allergies No Known Allergies Allergy (Verified 07/13/25 09:30) Medication List - Last Reconciled 07/13/25 by Nazario Augustin MD blood sugar diagnostic (FreeStyle Lite Strips) Test blood sugar once a day blood-glucose meter (FreeStyle Lite Meter kit) Test blood sugar once a day cholecalciferol (vitamin D3) 25 mcg PO DAILY ezetimibe 10 mg PO DAILY glipizide-metformin 5-500 mg 1 tab PO BID lancets (FreeStyle Lancets) Test blood sugar once a day lisinopril 5 mg PO DAILY OneTouch Delica Lancets (lancets) Test blood sugar once a day NS OneTouch Ultra Test (blood sugar diagnostic) Test blood sugar once a day NS OneTouch Ultra2 Meter (blood-glucose meter) As directed to test blood sugar NS simvastatin 40 mg PO QPM 90 days Tobacco use date assessed: 03/11/25 Fall risk assessment: No Falls in past year Last assessed Fall Risk: 07/13/25 Dental Screening Dental Screen Date: 03/11/25 HPI Annual PE HPI Details History of Present Illness The patient is a 74 year old male presenting for a physical exam and health review. Ventral Hernia: - Patient has an observable ventral chidi ia described as a bulge through weakened abdominal muscles. - The hernia manifests upon increased ab dominal pressure, such as lifting heavy objects. - No previous surgical intervention was mentioned for the current condition. Type 2 Diabetes Mellitus: - Diagnosed with Type 2 diabetes, and cu rrent Hemoglobin A1c is slightly elevated at 7.6%, consistent with previous levels of 7.3% and 7.5%. - Patient is prescribed Glipizide-metfor min for management. - No mention of diabetic complications s uch as neuropathy, though potential for diabetic neuropathy was discussed. Essential Hypertension: - The patient is on Lisinopril 5 mg. - Blood pressure currently well-controll ed at 122/80 mmHg. - No associated symptoms such as dizzine ss or lightheadedness reported. Chronic Kidney Disease: - Kidney function is discussed as compro mised but stable. - No specific symptoms related to kidney disease noted. Hyperlipidemia: - Managed with Simvastatin 40 mg and Nelson timibe (Zetia). - No further lipid panel details provide d. Vertigo: - History of vertigo showed during physi saw balance tests. - Patient did not report any recent epis odes but acknowledged existing vertigo. Medical History: - Type 2 Diabetes Mellitus - Essential Hypertension - Chronic Kidney Disease - Hyperlipidemia - Vertigo Surgical History: - Surgery for an umbilical hernia Social History: - The patient lives with his , who r equires assistance with oxygen therapy. - Celebrated 55 anniversary. - Expected to become a great-grandfather soon. - No mention of tobacco, alcohol, or rec reational drug use. Family History: - is on oxygen 26/05 due to an unspe cified condition. . Health Maintenance - Recent colonoscopy revealed polyps; ne xt scheduled for 2027. - Vaccinations: COVID and influenza vacc panchito discussed, with an emphasis on maintaining current vaccination status. - Encouraged to increase vitamin D intak e. Medications - Lisinopril 5 mg for Essential Hyperten michael - Simvastatin 40 mg for Hyperlipidemia - Ezetimibe (Zetia) for Hyperlipidemia - Glipizide-metformin 5-500 mg, twice da meghan, for Type 2 Diabetes Mellitus - Vitamin D supplementation advised due to low levels Diagnostic results - Labs: Hemoglobin A1c at 7.6%, indicati ng stable but slightly increased levels. - Kidney function tests suggest stable c hronic kidney disease. Patient Instructions - Continue current medications as prescr ibed. - Take vitamin D supplements to improve levels. - Obtain annual flu vaccine and maintain up-to-date vaccinations, including COVID booster. - Be cautious with lifting heavy objects due to ventral hernia. Follow-up 4 months Review of Systems - General: No fever no chills - Neurological: No headaches no dizzin ess - Ear nose throat: No sore throat no hearing difficulty no ear pain - Cardiovascular: No syncope, no chest pain, no palpitations - Gastrointestinal: No nausea vomiting or diarrhea - Endocrine: No polyuria polydipsia no heat intolerance - Genitourinary: No dysuria - Skin: No new complaints Physical Exam General: Cooperative, healthy appearing, comfortable, no acute distress Orientation: Patient oriented x3 Head: Normal to inspection Ears: Within normal limit visually Nose: Normal external nose present Face and sinus: Normal facial exam Eyes: Appearance normal, extraocular movement intact pupils reactive Neck: Normal visual inspection and supple Respiratory: Normal respiratory effort and able to speak in complete sentences. Clear to auscultation, no stridor Cardiovascular: S1 and S2 RRR, blood pressure 122/80 GI: Normal to inspection. Soft to palpation and nontender. Ventral hernia present Skin: Turgor normal, no acute findings Neuro: Patient oriented x3, motor sensory intact, balance intact, tandem failed Extremities: Normal to inspection, range of motion intact PFS Medical History Nephropathy Diabetes Elevated cholesterol HTN (hypertension) Surgical History Hx of hand surgery History of umbilical hernia repair History of colonoscopy Family History Father Hyperlipidemia Hx of CABG Mother HTN (hypertension) Hyperlipidemia Sister No problems noted. Son No problems noted. Son No problems noted. Daughter No problems noted. Social History Housing: House Are you a primary patient care specialist to a significant other at home: No Do you presently have visiting nurse or other home services: No Alcohol intake: never Patient Tobacco Use Status: Never used Tobacco e-Cigarette/Vaping Use: Never Used Second Hand Smoke Exposure: Yes service: Yes Current occupational status: retired Cognitive needs: No Hearing needs: Yes Vision needs: Yes Questionnaire Thrive Questionnaire Date Thrive assessed: 03/11/25 I am a: Patient What is your living situation today?: I have a steady place to live Within the past 12 months, did the food you bought not last and you didn't have the money to get more?: Never true Within the past 12 months, did you worry whether your food would run out before you got money to buy more?: Never true Do you have trouble paying for medicines?: No Do you have trouble getting transportation to medical appointments?: No Do you have trouble paying your heating and electricity bill?: No Do you have trouble taking care of your child, family member or friend?: No Do you have trouble with day-to-day activities such as bathing, preparing meals, shopping, managing finances, etc.?: No Are you currently unemployed and looking for a job?: No Are you interested in more education?: No Please select the resources that you would like help with: None Currently or been in a relationship where the following occur: No concerns reported THRIVE Score: 0 NGUYỄN-7 AMB Questionnaire NGUYỄN-7 Date NGUYỄN - 7 assessed: 03/11/25 Source: Developed by Drs. Richard Rome, Lily Sofia, Brayden Mathias and colleagues, with an educational jf from [employer]. Physical exam (Primary Care) Vital Signs: Last Vital Signs Pulse 94 07/13/25 09:29 BP 122/80 07/13/25 09:29 Pulse Ox 95 07/13/25 09:29 BMI result Body Mass Index 30.6 Tobacco/Smoking Status: Tobacco use Status Tobacco use date assessed 03/11/25 07/13/25 09:31 Patient Tobacco Use Status Never used Tobacco 07/13/25 09:31 e-Cigarette/Vaping Use Never Used 07/13/25 09:31 Thrive Assessment: Date of Thrive Assessment Date Thrive assessed 03/11/25 07/13/25 09:31 Currently or been in a relationship where the following occur: No concerns reported Coding Level of Care Code Est Pt Level 4 (56619) Est Pt Prev Care >65y(08015) Diagnoses Encounter for general adult medical examination with abnormal findings Z00. Nephropathy associated with another disease N08 Class 1 obesity due to excess calories with serious comorbidity and body mass index (BMI) of 31.0 to 31.9 in adult E66.09; Z68.31 Obesity classification: adult class 1 (BMI 30 - 34.9) Serious obesity comorbidity presence: with serious comorbidity Body mass index: BMI 31.0-31.9 Diabetes 1.5, managed as type 2 E13.9 Vitamin D deficiency E55.9 Lipid disorder E78.9 Hypertension, essential I10 Abnormal tandem walk R26.9 Assessment & Plan Assessment & Plan (1) Encounter for general adult medical examination with abnormal findings: Code(s): Z00.01 - Encounter for general adult medical examination with abnormal findings Category: Medical (2) Nephropathy associated with another disease: Code(s): N08 - Glomerular disorders in diseases classified elsewhere Category: Medical (3) Obesity due to excess calories: Code(s): E66.09 - Other obesity due to excess calories Category: Medical Qualifiers: Obesity classification: adult class 1 (BMI 30 - 34.9) Serious obesity comorbidity presence: with serious comorbidity Body mass index: BMI 31.0-31.9 Qualified Code(s): E66.09 - Other obesity due to excess calories; Z68.31 - Body mass index [BMI] 31.0-31.9, adult (4) Diabetes 1.5, managed as type 2: Code(s): E13.9 - Other specified diabetes mellitus without complications Category: Medical (5) Vitamin D deficiency: Code(s): E55.9 - Vitamin D deficiency, unspecified Category: Medical (6) Lipid disorder: Code(s): E78.9 - Disorder of lipoprotein metabolism, unspecified Category: Medical (7) Hypertension, essential: Code(s): I10 - Essential (primary) hypertension Category: Medical (8) Abnormal tandem walk: Code(s): R26.9 - Unspecified abnormalities of gait and mobility Category: Medical Plan History of Present Illness The patient is a 74 year old male presenting for a physical exam and health review. Ventral Hernia: - Patient has an observable ventral hernia described as a bulge through weakened abdominal muscles. - The hernia manifests upon increased abdominal pressure, such as lifting heavy objects. - No previous surgical intervention was mentioned for the current condition. Type 2 Diabetes Mellitus: - Diagnosed with Type 2 diabetes, and current Hemoglobin A1c is slightly iveth vated at 7.6%, consistent with previous levels of 7.3% and 7.5%. - Patient is prescribed Glipizide-metformin for management. - No mention of diabetic complications such as neuropathy, though potential for diabetic neuropathy was discussed. Essential Hypertension: - The patient is on Lisinopril 5 mg. - Blood pressure currently well-controlled at 122/80 mmHg. - No associated symptoms such as dizziness or lightheadedness reported. Chronic Kidney Disease: - Kidney function is discussed as compromised but stable. - No specific symptoms related to kidney disease noted. Hyperlipidemia: - Managed with Simvastatin 40 mg and Ezetimibe (Zetia). - No further lipid panel details provided. Vertigo: - History of vertigo showed during physical balance tests. - Patient did not report any recent episodes but acknowledged existing vertigo. Medical History: - Type 2 Diabetes Mellitus - Essential Hypertension - Chronic Kidney Disease - Hyperlipidemia - Vertigo Surgical History: - Surgery for an umbilical hernia Social History: - The patient lives with his , who requires assistance with oxygen therapy. - Celebrated 55th anniversary. - Expected to become a great-grandfather soon. - No mention of tobacco, alcohol, or recreational drug use. Family History: - is on oxygen / due to an unspecified condition. . Health Maintenance - Recent colonoscopy revealed polyps; next scheduled for 2027. - Vaccinations: COVID and influenza vaccines discussed, with an emphasis on maintaining current vaccination status. - Encouraged to increase vitamin D intake. Medications - Lisinopril 5 mg for Essential Hypertension - Simvastatin 40 mg for Hyperlipidemia - Ezetimibe (Zetia) for Hyperlipidemia - Glipizide-metformin 5-500 mg, twice daily, for Type 2 Diabetes Mellitus - Vitamin D supplementation advised due to low levels Diagnostic results - Labs: Hemoglobin A1c at 7.6%, indicating stable but slightly increased levels. - Kidney function tests suggest stable chronic kidney disease. Patient Instructions - Continue current medications as prescribed. - Take vitamin D supplements to improve levels. - Obtain annual flu vaccine and maintain up-to-date vaccinations, including COV ID booster. - Be cautious with lifting heavy objects due to ventral hernia. Follow-up 4 months Orders: Orders Hemoglobin A1c Today E13.9 - Other specified diabetes mellitus without complications, I10 - Essential (primary) hypertension Complete Blood Count Auto Diff Today E13.9 - Other specified diabetes mellitus without complications, I10 - Essential (primary) hypertension Comprehensive Met. Panel Today E13.9 - Other specified diabetes mellitus without complications, I10 - Essential (primary) hypertension
== END 2025-07-13 09:47 | disposition home or self-care (01) ==
LOC: HO.HMCC 09:24
PROVIDERS: PCP Internal Medicine; Visit Provider Internal Medicine
DX: Z00.01 Encounter for general adult medical examination with abnormal findings (principal); E13.9 Other specified diabetes mellitus without complications; E66.09 Other obesity due to excess calories; Z68.31 Body mass index [BMI] 31.0-31.9, adult; E55.9 Vitamin D deficiency, unspecified; N08 Glomerular disorders in diseases classified elsewhere; E78.9 Disorder of lipoprotein metabolism, unspecified; I10 Essential (primary) hypertension; R26.9 Unspecified abnormalities of gait and mobility

== ENCOUNTER → 2025-07-13 09:22 | Outpatient (BNVA) | payer MEDICARE, SELFPAY | PROVIDERS: PCP Internal Medicine; Visit Provider Internal Medicine | DX: Z00.01 Encounter for general adult medical examination with abnormal findings (principal); I12.9 Hypertensive chronic kidney disease with stage 1 through stage 4 chronic kidney disease, or unspecified chronic kidney disease; E13.22 Other specified diabetes mellitus with diabetic chronic kidney disease; N18.9 Chronic kidney disease, unspecified; E66.09 Other obesity due to excess calories; Z68.31 Body mass index [BMI] 31.0-31.9, adult; E55.9 Vitamin D deficiency, unspecified; E78.9 Disorder of lipoprotein metabolism, unspecified; R26.9 Unspecified abnormalities of gait and mobility; Z79.84 Long term (current) use of oral hypoglycemic drugs; Z79.899 Other long term (current) drug therapy | CPT/HCPCS: 99397 ==